=== PATIENT | female | born 1935 | race Caucasian/White ===

== ENCOUNTER 2017-12-30 18:00 | Emergency (ER) | payer MEDICARE, OTHER ==
--- NOTE | 2017-12-30 18:19 | EDM.PDOC ---
ED HPI GENERAL MEDICAL PROBLEM - General Chief Complaint: General Stated Complaint: PAIN IN RIGHT ARM Time Seen by Provider: 12/30/17 18:05 Source of Information: Reports: Patient History Limitations: Reports: No Limitations - History of Present Illness INITIAL COMMENTS - FREE TEXT/NARRATIVE: Andria comes into [facility] ED with a painful R arm that developed just an hour ago. She developed sudden pain in the R upper arm after reaching over a car seat to grab a bag of groceries. Pain seemed to escalate going into the house, associated with a tender enlarging mass of the arm. There is pain with flexion, any attempt at overhead movements, and some perceived weakness. She has taken no meds. She is not on anticoagulants. Right Upper Arm Pain Score (Numeric/FACES): 4 - Related Data Allergies Allergy/AdvReac Type Severity Reaction Status Date / Time No Known Allergies Allergy Verified 12/30/17 18:14 Home Meds: Home Meds . [Unable to Verify Home Med List] 12/30/17 [History] Past Medical History Cardiovascular History: Reports: Hypertension Musculoskeletal History: Reports: Gout - Past Surgical History Musculoskeletal Surgical History: Reports: Hip Replacement Review of Systems - Review of Systems Review Of Systems: ROS reveals no pertinent complaints other than HPI. ED EXAM, GENERAL - Physical Exam Exam: See Below Exam Limited By: No Limitations General Appearance: Alert, WD/WN, Mild Distress Head: Normocephalic Neck: Normal Inspection, Supple, Full Range of Motion Respiratory/Chest: Lungs Clear, Normal Breath Sounds Cardiovascular: Regular Rate, Rhythm, No Murmur GI/Abdominal: Normal Bowel Sounds, Soft, Non-Tender, No Organomegaly, No Distention, No Mass Back Exam: Normal Inspection Extremities: Arm Pain (R arm: firm proximal swelling in proximity to biceps mm; tenderness at bicepital groove; CMS intact), Limited Range of Motion (R arm with guarding) Neurological: Alert, Oriented, CN II-XII Intact, No Motor/Sensory Deficits Psychiatric: Normal Affect, Normal Mood Skin Exam: Warm, Dry, Intact, Normal Color, No Rash Lymphatic: No Adenopathy Course - Vital Signs Text/Narrative:: Seen by Dr Herrera with change of shift, awaiting results of R arm CT. Last Recorded V/S: Last Vital Signs Temp 36.6 C 12/30/17 18:16 Pulse 56 L 12/30/17 18:16 Resp 18 12/30/17 18:16 BP 176/68 H 12/30/17 18:16 Pulse Ox 98 12/30/17 18:16 - Orders/Labs/Meds Orders: Active Orders 24 hr Category Date Time Status Upper Extremity wo Cont Rt [CT] Stat Exams 12/30/17 18:07 Taken Meds: Medications Discontinued Medications Generic Name Dose Route Start Last Admin Trade Name Allie PRN Reason Stop Dose Admin Hydrocodone Bitart/Acetaminophen 1 tab 12/30/17 18:21 12/30/17 18:35 [place] 325-5 Mg PO 12/30/17 18:22 1 tab ONETIME ONE Administration Departure - Departure Time of Disposition: 19:00 Disposition: Home, Self-Care 01 Condition: Fair Clinical Impression: Nontraumatic rupture of right bicep tendon - Discharge Information Instructions: JAIDA for Routine Care of Injuries, [id number] Referrals: Hillary Lopez PARTS ADMINISTRATOR [Primary Care Provider] - Forms: ED Department Discharge Care Plan Goals: see your dr on thursday take pain meds as directed wear sling keep ice to area as diected - Problem List & Annotations (1) Nontraumatic rupture of right bicep tendon SNOMED Code(s): 534048076 Code(s): QLN7336 - Status: Acute Annotation/Comment:: JAIDA Juares, and see Orthopedist later this week. - Problem List Review Problem List Initiated/Reviewed/Updated: Yes - My Orders Last 24 Hours: My Active Orders 12/30/17 18:07 Upper Extremity wo Cont Rt [CT] Stat - Assessment/Plan Last 24 Hours: My Active Orders 12/30/17 18:07 Upper Extremity wo Cont Rt [CT] Stat Plan: Follow up Orthopedics.
[2017-12-30] MEDS ORDERED: Acetaminophen/HYDROcodone 325-5 MG Tab PO ONE (18:21)
--- NOTE | 2017-12-31 08:02 | ER ---
DATE SEEN: 12/30/2017 ADDENDUM: TIME SEEN: 1915 hours. This patient was seen by Dr. Murray. I was called to relay the results of the CT scan. She has complained of pain in the right arm after minimal trauma, and CT scan has revealed that she has a hematoma on the biceps. Pain is well controlled now, after she took hydrocodone. PHYSICAL EXAMINATION: GENERAL: She is not in any cardiopulmonary distress. VITAL SIGNS: Blood pressure 176/68, pulse is 56. EXTREMITIES: Right arm revealed that she is in a sling, has exquisite tenderness to palpation of the proximal arm and a mass that is tender. Peripheral pulses are present at the radius. Range of motion is limited at the shoulder. A CT scan revealed a hematoma, moderate-sized on the biceps area. IMPRESSION: Hematoma, right upper extremity. PLAN: Hydrocodone 1 tablet every 6 hours p.r.n. Continue ice for 20 minutes every 4 hours, sling for 2 to 3 days. Follow up with HORACIO Real, in the office on Thursday. /[id number] ROSARIO/ISABEL
== END 2017-12-30 19:28 | disposition home or self-care (01) ==
LOC: FB.ED 18:00
DX: S40.021A Contusion of right upper arm, initial encounter (principal); X58.XXXA Exposure to other specified factors, initial encounter
CPT/HCPCS: 73200; 99283; A9270

== ENCOUNTER 2018-09-11 16:31 | Observation (INO) | payer MEDICARE, OTHER ==
[2018-09-11] MEDS ORDERED: Aspirin 81 MG Tab.Chew PO ONE (16:56)
[2018-09-11] MEDS ORDERED: Potassium Chloride 10% 20 MEQ/15 ML Soln 15 ML UD Cup PO ONE (18:04)
[2018-09-11] MEDS ORDERED: Ondansetron 4 MG/2 ML SDV IV PRN (18:14)
[2018-09-11] MEDS ORDERED: Sodium Chloride 0.9% 1,000 ML IV SCH (18:15)
[2018-09-11] MEDS ORDERED: Nitroglycerin 2% Oint 1 GM UD Packet TOP ONE (18:18)
[2018-09-11] MEDS ORDERED: Potassium Chloride 20 MEQ Tab.ER PO ONE (18:27)
--- NOTE | 2018-09-11 18:33 | EDM.PDOC ---
ED HPI GENERAL MEDICAL PROBLEM - General Chief Complaint: Chest Pain Stated Complaint: CHEST IS TIGHT Time Seen by Provider: 09/11/18 16:31 Source of Information: Reports: Patient, Family (grandson) History Limitations: Reports: No Limitations - History of Present Illness INITIAL COMMENTS - FREE TEXT/NARRATIVE: 83 y.o.w.f with a H/o a fib > 10 years ago. Pt was at that time electrically cardioverted to sinus rhythm and was doing fine since. Pt was working out side and felt suddenly CP 8/10 at her mid chest, non radiating. No diaphoresis. No radiation of the chest pain. ECG showed A fib with NVR. Pt did not take her meds today. No N/V/D or Dizziness or any other acute medical issues. BP 164/ 74 RR 18 Pulse ox 99% on RA, Temp 36.8 pulse 100 Onset Date: 09/11/18 Onset Time: 13:00 Duration: Minutes:, Constant Location: Reports: Chest Quality: Reports: Pressure, Stabbing Severity: Moderate Improves with: Reports: Rest Worsens with: Reports: None Context: Reports: Activity, Other Associated Symptoms: Reports: Chest Pain chest Pain Score (Numeric/FACES): 5 - Related Data Allergies Allergy/AdvReac Type Severity Reaction Status Date / Time No Known Allergies Allergy Verified 09/11/18 17:26 Home Meds: Home Meds Allopurinol [Zyloprim] 150 mg PO DAILY 09/11/18 [History] Aspirin 81 mg PO BEDTIME 09/11/18 [History] Carbidopa/Levodopa [Sinemet Cr 25-100 Tablet] 1 tab PO BEDTIME 09/11/18 [History ] Furosemide 20 mg PO ASDIRECTED 09/11/18 [History] Lisinopril/Hydrochlorothiazide [Lisinopril-Hctz 20-25 mg Tab] 1 tab PO 1200 08/18 [History] Metoprolol Succinate 100 mg PO 1700 09/11/18 [History] Sertraline [Zoloft] 25 mg PO 1700 09/11/18 [History] Simvastatin [Zocor] 20 mg PO 1700 09/11/18 [History] Past Medical History HEENT History: Reports: Cataract, Impaired Vision Other HEENT History: wears glasses Cardiovascular History: Reports: Hypertension Other Cardiovascular History: CHF 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: Musculoskeletal History: Reports: Gout - Infectious Disease History Infectious Disease History: Reports: Chicken Pox, Measles, Mumps - Past Surgical History Musculoskeletal Surgical History: Reports: Hip Replacement Social & Family History - Family History Family Medical History: Noncontributory - Tobacco Use Smoking Status *Q: Former Smoker Used Tobacco, but Quit: Yes Month/Year Tobacco Last Used: 1989 - Caffeine Use Caffeine Use: Reports: Coffee - Recreational Drug Use Recreational Drug Use: No ED ROS GENERAL - Review of Systems Review Of Systems: See Below Constitutional: Reports: No Symptoms HEENT: Reports: No Symptoms Respiratory: Reports: No Symptoms Cardiovascular: Reports: Chest Pain Endocrine: Reports: No Symptoms GI/Abdominal: Reports: No Symptoms : Reports: No Symptoms Musculoskeletal: Reports: No Symptoms Skin: Reports: No Symptoms Neurological: Reports: No Symptoms Psychiatric: Reports: No Symptoms Hematologic/Lymphatic: Reports: No Symptoms Immunologic: Reports: No Symptoms ED EXAM, GENERAL - Physical Exam Exam: See Below Exam Limited By: No Limitations General Appearance: Alert, WD/WN, Mild Distress Eye Exam: Bilateral Eye: Normal Inspection Ears: Normal External Exam, Normal Canal Ear Exam: Bilateral Ear: Auricle Normal Nose: Normal Inspection, Normal Mucosa, No Blood Throat/Mouth: Normal Inspection, Normal Lips, Normal Voice, No Airway Compromise Head: Atraumatic, Normocephalic Neck: Normal Inspection, Supple, Non-Tender, Full Range of Motion Respiratory/Chest: No Respiratory Distress, Lungs Clear, Normal Breath Sounds, No Accessory Muscle Use, Chest Non-Tender Cardiovascular: Normal Peripheral Pulses, No Edema, No Gallop, No JVD, No Murmur , No Rub, Irregularly Irregular Peripheral Pulses: 2+: Brachial (L) GI/Abdominal: Normal Bowel Sounds, Soft, Non-Tender, No Organomegaly, No Distention, No Abnormal Bruit, No Mass, Pelvis Stable (Female) Exam: Deferred Rectal (Female) Exam: Deferred Back Exam: Normal Inspection, Full Range of Motion Extremities: Normal Inspection, Normal Range of Motion, Non-Tender, No Pedal Edema Neurological: Alert, Oriented, CN II-XII Intact, Normal Cognition, Normal Gait, No Motor/Sensory Deficits Psychiatric: Normal Affect, Normal Mood Skin Exam: Warm, Dry, Intact, Normal Color, No Rash Lymphatic: No Adenopathy EKG INTERPRETATION EKG Date: 09/11/18 Time: 16:45 Rhythm: A-Fib Rate (Beats/Min): 87 Anton: Normal P-Wave: Absent QRS: Normal ST-T: Depressed (V3 to V6) QT: Normal Comparison: NA - No Prior EKG Course - Vital Signs Text/Narrative:: 83 y.o.w.f with a H/o a fib > 10 years ago. Pt was at that time electrically cardioverted to sinus rhythm and was doing fine since. Pt was working out side and felt suddenly CP 8/10 at her mid chest, non radiating. No diaphoresis. No radiation of the chest pain. ECG showed A fib with NVR. Pt did not take her meds today. No N/V/D or Dizziness or any other acute medical issues. BP 164/ 74 RR 18 Pulse ox 99% on RA, Temp 36.8 pulse 100 irr/irr PE: WNWD W F wit SSCP in A fib wit NVR Imaging: CXR NAD Labs: CBC nl BMP: Na 132 K 3.3 BUN 34 Cr. 1.6 GFR 33 Troponin 0.017 Impression: Acute coronary Syndrome with ST depression V3-V6, Low Sodium, low potassium, A fib with NVR Tx: ASA, NTG, NS, Hepain (no bolus), admit, home meds Reexam: Pain improved from 8/10 to 2-3/10 before NTG was placed Plan: Admit to M/S tele. 09/12/2018 23.59 pm Pt converted to NSR, Pt was pain free, Heparin drip was D/C'd. Last Recorded V/S: Last Vital Signs Temp 37.1 C 09/12/18 12:00 Pulse 54 L 09/12/18 12:00 Resp 18 09/12/18 12:00 BP 145/66 H 09/12/18 12:00 Pulse Ox 99 09/12/18 12:00 - Orders/Labs/Meds Labs: Laboratory Tests 09/11/18 09/11/18 09/11/18 Range/Units 17:10 17:10 17:15 WBC 9.8 (4.5-12.0) X10-3/uL RBC 4.08 (3.23-5.20) x10(6)uL Hgb 13.0 (11.5-15.5) g/dL Hct 38.2 (30.0-51.3) % MCV 93.4 (80-96) fL MCH 31.8 (27.7-33.6) pg MCHC 34.0 (32.2-35.4) g/dL RDW 14.3 (11.5-15.5) % Plt Count 222 (125-369) X10(3)uL MPV 8.3 (7.4-10.4) fL Neut % (Auto) 57.1 (46-82) % Lymph % (Auto) 25.9 (13-37) % [place] % (Auto) 11.3 (4-12) % Eos % (Auto) 1 (1.0-5.0) % Baso % (Auto) 5 H (0-2) % Neut # (Auto) 5.6 (1.6-8.3) # Lymph # (Auto) 2.5 (0.6-5.0) # [place] # (Auto) 1.1 (0.0-1.3) # Eos # (Auto) 0.1 (0.0-0.8) # Baso # (Auto) 0.5 H (0.0-0.2) # PT (8.7-11.1) INR (0.89-1.13) APTT 30.4 (24.4-33.2) SECONDS Sodium (135-145) mmol/L Potassium (3.5-5.3) mmol/L Chloride (100-110) mmol/L Carbon Dioxide (21-32) mmol/L BUN (7-18) mg/dL Creatinine (0.55-1.02) mg/dL Est Cr Clr Drug Dosing Estimated GFR (MDRD) (>60) BUN/Creatinine Ratio (9-20) Glucose (80-116) mg/dL Calcium (8.6-10.2) mg/dL Creatine Kinase (60-160) IU/L Troponin I (<0.017-0.056) ng/mL TSH, Ultra Sensitive 3.89 H (0.36-3.74) IU/mL Urine Color (YELLOW) Urine Appearance (CLEAR) Urine pH (5.0-6.5) Ur Specific [place] (1.010-1.025) Urine Protein (NEGATIVE) mg/dL Urine Glucose (UA) (NEGATIVE) mg/dL Urine Ketones (NEGATIVE) mg/dL Urine Occult Blood (NEGATIVE) Urine Nitrite (NEGATIVE) Urine Bilirubin (NEGATIVE) Urine Urobilinogen (NEGATIVE) mg/dL Ur Leukocyte Esterase (NEGATIVE) Urine RBC (0) Urine WBC (0) Ur Squamous Epith Cells (NS,R,O) Urine Bacteria (NS) 09/11/18 09/11/18 09/11/18 Range/Units 17:15 17:15 17:15 WBC (4.5-12.0) X10-3/uL RBC (3.23-5.20) x10(6)uL Hgb (11.5-15.5) g/dL Hct (30.0-51.3) % MCV (80-96) fL MCH (27.7-33.6) pg MCHC (32.2-35.4) g/dL RDW (11.5-15.5) % Plt Count (125-369) X10(3)uL MPV (7.4-10.4) fL Neut % (Auto) (46-82) % Lymph % (Auto) (13-37) % [place] % (Auto) (4-12) % Eos % (Auto) (1.0-5.0) % Baso % (Auto) (0-2) % Neut # (Auto) (1.6-8.3) # Lymph # (Auto) (0.6-5.0) # [place] # (Auto) (0.0-1.3) # Eos # (Auto) (0.0-0.8) # Baso # (Auto) (0.0-0.2) # PT 9.3 (8.7-11.1) INR 0.96 (0.89-1.13) APTT (24.4-33.2) SECONDS Sodium 132 L (135-145) mmol/L Potassium 3.3 L (3.5-5.3) mmol/L Chloride 94 L (100-110) mmol/L Carbon Dioxide 29 (21-32) mmol/L BUN 34 H (7-18) mg/dL Creatinine 1.3 H (0.55-1.02) mg/dL Est Cr Clr Drug Dosing TNP Estimated GFR (MDRD) 39 L (>60) BUN/Creatinine Ratio 26.2 H (9-20) Glucose 102 (80-116) mg/dL Calcium 9.3 (8.6-10.2) mg/dL Creatine Kinase 105 (60-160) IU/L Troponin I < 0.017 L (<0.017-0.056) ng/mL TSH, Ultra Sensitive (0.36-3.74) IU/mL Urine Color (YELLOW) Urine Appearance (CLEAR) Urine pH (5.0-6.5) Ur Specific [place] (1.010-1.025) Urine Protein (NEGATIVE) mg/dL Urine Glucose (UA) (NEGATIVE) mg/dL Urine Ketones (NEGATIVE) mg/dL Urine Occult Blood (NEGATIVE) Urine Nitrite (NEGATIVE) Urine Bilirubin (NEGATIVE) Urine Urobilinogen (NEGATIVE) mg/dL Ur Leukocyte Esterase (NEGATIVE) Urine RBC (0) Urine WBC (0) Ur Squamous Epith Cells (NS,R,O) Urine Bacteria (NS) 09/11/18 Range/Units 17:29 WBC (4.5-12.0) X10-3/uL RBC (3.23-5.20) x10(6)uL Hgb (11.5-15.5) g/dL Hct (30.0-51.3) % MCV (80-96) fL MCH (27.7-33.6) pg MCHC (32.2-35.4) g/dL RDW (11.5-15.5) % Plt Count (125-369) X10(3)uL MPV (7.4-10.4) fL Neut % (Auto) (46-82) % Lymph % (Auto) (13-37) % [place] % (Auto) (4-12) % Eos % (Auto) (1.0-5.0) % Baso % (Auto) (0-2) % Neut # (Auto) (1.6-8.3) # Lymph # (Auto) (0.6-5.0) # [place] # (Auto) (0.0-1.3) # Eos # (Auto) (0.0-0.8) # Baso # (Auto) (0.0-0.2) # PT (8.7-11.1) INR (0.89-1.13) APTT (24.4-33.2) SECONDS Sodium (135-145) mmol/L Potassium (3.5-5.3) mmol/L Chloride (100-110) mmol/L Carbon Dioxide (21-32) mmol/L BUN (7-18) mg/dL Creatinine (0.55-1.02) mg/dL Est Cr Clr Drug Dosing Estimated GFR (MDRD) (>60) BUN/Creatinine Ratio (9-20) Glucose (80-116) mg/dL Calcium (8.6-10.2) mg/dL Creatine Kinase (60-160) IU/L Troponin I (<0.017-0.056) ng/mL TSH, Ultra Sensitive (0.36-3.74) IU/mL Urine Color Yellow (YELLOW) Urine Appearance Clear (CLEAR) Urine pH 8.0 H (5.0-6.5) Ur Specific [place] 1.005 L (1.010-1.025) Urine Protein Negative (NEGATIVE) mg/dL Urine Glucose (UA) Normal (NEGATIVE) mg/dL Urine Ketones Negative (NEGATIVE) mg/dL Urine Occult Blood Negative (NEGATIVE) Urine Nitrite Negative (NEGATIVE) Urine Bilirubin Negative (NEGATIVE) Urine Urobilinogen Normal (NEGATIVE) mg/dL Ur Leukocyte Esterase Negative (NEGATIVE) Urine RBC 0-5 (0) Urine WBC 0-5 (0) Ur Squamous Epith Cells Occasional (NS,R,O) Urine Bacteria Rare H (NS) Meds: Medications Discontinued Medications Generic Name Dose Route Start Last Admin Trade Name Freq PRN Reason Stop Dose Admin Allopurinol 150 mg 09/12/18 09:00 09/12/18 09:08 Zyloprim PO 150 mg DAILY [facility] Administration Amlodipine Besylate 5 mg 09/11/18 21:14 Norvasc PO ASDIRECTED PRN Hypertension Amlodipine Besylate 5 mg 09/12/18 09:00 09/12/18 09:08 Norvasc PO 5 mg DAILY [facility] Administration Aspirin 324 mg 09/11/18 16:56 09/11/18 16:59 Aspirin PO 09/11/18 16:57 324 mg ONETIME ONE Administration Aspirin 81 mg 09/12/18 09:45 09/12/18 10:01 Halfprin PO 81 mg DAILY [facility] Administration Carbidopa/Levodopa 1 tab 09/12/18 21:00 Sinemet 25-100 Mg PO BEDTIME [facility]U Carbidopa/Levodopa 1 tab 09/11/18 21:24 09/11/18 22:20 Sinemet 25-100 Mg PO 09/11/18 21:25 Not Given ONETIME ONE Carbidopa/Levodopa 1 tab 09/11/18 21:47 09/11/18 22:20 Sinemet Cr 25-100 Mg PO 1 tab BEDTIME [facility] Administration Lisinopril/HCTZ 1 tab 09/12/18 12:00 09/12/18 12:16 Lisinopril-Hctz 20-25 Mg PO Not Given DAILY@1200 [facility] Sodium Chloride 1,000 mls @ 125 mls/hr 09/11/18 18:15 09/11/18 18:40 Normal Saline IV 125 mls/hr ASDIRECTED [facility] Administration Heparin Sodium/Sodium Chloride 25,000 units in 500 mls @ 15.816 mls/hr 18:45 09/11/18 19:40 Heparin 25,000 Units In 1/2 Ns 500 Ml IV 12 units/kg/hr TITRATE [facility] 15.816 mls/hr Administration Protocol 12 UNITS/KG/HR Metoprolol Succinate 100 mg 09/12/18 17:00 Toprol Xl PO 1700 [facility] Metoprolol Succinate 100 mg 09/11/18 21:20 09/11/18 22:13 Toprol Xl PO 09/11/18 21:21 100 mg ONETIME ONE Administration Metoprolol Succinate 100 mg 09/12/18 17:00 Toprol Xl PO DAILY@1700 [facility] Nitroglycerin 1 gm 09/11/18 18:18 09/11/18 18:45 Nitro-Bid 2% TOP 09/11/18 18:19 1 gm ONETIME ONE Administration Non-Formulary Medication 1 tab 09/12/18 12:00 Lisinopril/Hydrochlorothiazide [Lisinopril-Hctz 20-25 Mg Tab] PO 1200 [facility] Ondansetron HCl 4 mg 09/11/18 18:14 Zofran IV Q4H PRN Nausea/Vomiting Pantoprazole Sodium 40 mg 09/11/18 18:15 09/12/18 06:08 Protonix Iv IVPUSH 40 mg Q12H [facility] Administration Potassium Chloride 20 meq 09/11/18 18:04 09/11/18 19:36 Potassium Chloride Solution PO 09/11/18 18:05 Not Given ONETIME ONE Potassium Chloride 20 meq 09/11/18 18:27 09/11/18 18:45 Klor-Con M20 PO 09/11/18 18:28 20 meq ONETIME ONE Administration Potassium Chloride 40 meq 09/12/18 00:47 09/12/18 01:04 Klor-Con M20 PO 09/12/18 00:48 40 meq ONETIME ONE Administration Sertraline HCl 25 mg 09/12/18 17:00 Zoloft PO 1700 [facility] Sertraline HCl 25 mg 09/11/18 21:22 09/11/18 22:14 Zoloft PO 09/11/18 21:23 25 mg ONETIME ONE Administration Sertraline HCl 25 mg 09/12/18 17:00 Zoloft PO DAILY@1700 [facility] Simvastatin 20 mg 09/12/18 17:00 Zocor PO 1700 [facility] Simvastatin 20 mg 09/11/18 21:23 09/11/18 22:14 Zocor PO 09/11/18 21:24 20 mg ONETIME ONE Administration Simvastatin 20 mg 09/12/18 17:00 Zocor PO DAILY@1700 [facility] Sodium Chloride 10 ml 09/12/18 00:56 09/12/18 07:33 Saline Flush FLUSH 10 ml ASDIRECTED PRN Administration flush for saline lock Departure - Departure Time of Disposition: 17:00 Disposition: Admitted As Inpatient 65 Reason for Transfer *Q: Other (Acute coronary syndrome) Condition: Fair Clinical Impression: ACS (acute coronary syndrome)
[2018-09-11] MEDS: Pantoprazole 40 MG Vial IVPUSH SCH (18:45)
[2018-09-11] MEDS ORDERED: Heparin Sodium/0.45% NaCl 25,000 UNITS/500 ML BAG IV SCH (18:45)
[2018-09-11] MEDS ORDERED: amLODIPine 5 MG Tab PO PRN (21:14)
[2018-09-11] MEDS ORDERED: Metoprolol Succinate 100 MG Tab.ER**OWN MED PO ONE (21:20)
[2018-09-11] MEDS ORDERED: Sertraline 25 MG Tab**OWN MED PO ONE (21:22)
[2018-09-11] MEDS ORDERED: Simvastatin 20 MG Tab**OWN MED PO ONE (21:23)
[2018-09-11] MEDS ORDERED: Carbidopa/Levodopa 25-100 MG Tab PO ONE (21:24)
[2018-09-11] MEDS ORDERED: LEVODOPA PO SCH (21:47)
[2018-09-11] MEDS ORDERED: CARBIDOPA PO SCH (21:47)
[2018-09-12] MEDS ORDERED: Potassium Chloride 20 MEQ Tab.ER PO ONE (00:47)
[2018-09-12] MEDS: Sodium Chloride 0.9% 10 ML Syringe FLUSH PRN ×3 (01:04→07:33)
[2018-09-12] MEDS: Pantoprazole 40 MG Vial IVPUSH SCH (06:08)
[2018-09-12] MEDS ORDERED: Allopurinol 100 MG Tab**OWN MED PO SCH (09:00)
[2018-09-12] MEDS ORDERED: amLODIPine 5 MG Tab PO SCH (09:00)
--- NOTE | 2018-09-12 09:14 | PCM.HP ---
H&P History of Present Illness - General Date of Service: 09/12/18 Admit Problem/Dx: Admission Diagnosis/Problem Admission Diagnosis/Problem Atrial fibrillation with normal ventricular rate Source of Information: Patient, Old Records, Provider History Limitations: Reports: No Limitations - History of Present Illness Initial Comments - Free Text/Narative: Patient is an 83-year-old female with a very remote history of atrial fibrillation status post cardioversion with no further episodes in at least 10 years and congestive heart failure who had the acute onset of chest pain/ pressure and jaw pressure that developed while she was vacuuming on the day of admission at about 1515. She sat down and rested, then took her blood pressure which was in the 160s systolic. She checked her pulse and it was 94 but then she felt her pulse and it was very irregular. She had no dizziness, no nausea or vomiting, no sweatiness, no shortness of breath. However the tightness in her throat and chest persisted and so she decided to present to the emergency department. On arrival to the emergency department vital signs were stable and she was found to have a HR in the 80s on EKG with atrial fibrillation. Initial EKG showed atrial fibrillation with a controlled rate, left axis deviation, [address] segment depression in V3 through V6 with an occasional PVC and no T-wave inversion. Initial troponin was negative. The patient was given Nitropaste and started on a heparin drip and admitted to the ICU for further evaluation and treatment. EKG was subsequently repeated at 2359 when the patient spontaneously cardioverted and at that time the patient had ST depression in lead 2 with inversion/flattening of the T wave in 3 and aVF, ST depression was slightly persistent in V4 through V6. EKG done this morning shows more prominent T-wave inversion in 3 and aVF with resolution of ST depression for the most part in the lateral leads. When compared to previous EKG 05/06/17, inversion of T-wave in 3 and aVF appears to be new. Of note after the patient cardioverted her heparin drip was stopped so she is currently not anticoagulated. The patient has been asymptomatic since she had resolution of her atrial fibrillation and her troponins have been negative 3. At this time the patient is resting comfortably in no distress. She has no shortness of breath, no chest tightness, no nausea or vomiting, no abdominal pain. She feels back to her baseline. She's not had other episodes like this in the past. Past medical history: Hypertension History of atrial fibrillation and normal past with electrical cardioversion and minimal further episodes. Patient is not on anticoagulation and in chart review it appears she had not been on more than aspirin since 2012. Congestive heart failure. Last echo 08/25/12 showed systolic function normal with an ejection fraction of 65%, mild diastolic dysfunction. Hyperlipidemia History of depression History of iron deficiency anemia due to chronic blood loss History of skin cancer 2 Restless leg syndrome Stage III chronic kidney disease followed by nephrology Social history: The patient is and lives in [place], [place] on a farm. Her daughter stays with her 3 nights a week as she works between [employer]. She quit smoking about 15 years ago and drinks about once a month. When she drinks she typically drinks a number of drinks, sometimes as many as 6, over the course of the day. Family history: The patient's mother of congestive heart failure, the patient's father of cancer. She has 3 children and one of her sons had esophageal cancer. chest Pain Score (Numeric/FACES): 5 - Related Data Allergies/Adverse Reactions: Allergies Allergy/AdvReac Type Severity Reaction Status Date / Time No Known Allergies Allergy Verified 09/11/18 17:26 Home Medications: Home Meds Allopurinol [Zyloprim] 150 mg PO DAILY 09/11/18 [History] Aspirin 81 mg PO BEDTIME 09/11/18 [History] Carbidopa/Levodopa [Sinemet Cr 25-100 Tablet] 1 tab PO BEDTIME 09/11/18 [History ] Furosemide 20 mg PO ASDIRECTED 09/11/18 [History] Lisinopril/Hydrochlorothiazide [Lisinopril-Hctz 20-25 mg Tab] 1 tab PO 1200 08/18 [History] Metoprolol Succinate 100 mg PO 1700 09/11/18 [History] Sertraline [Zoloft] 25 mg PO 1700 09/11/18 [History] Simvastatin [Zocor] 20 mg PO 1700 09/11/18 [History] Past Medical History HEENT History: Reports: Cataract, Impaired Vision Other HEENT History: wears glasses Cardiovascular History: Reports: Hypertension Other Cardiovascular History: CHF Genitourinary History: Reports: Renal Disease, UTI, Recurrent LICENSED AUDIOLOGIST History: Reports: Other OB/BYN History: had a tubal and had a the appy then as well Musculoskeletal History: Reports: Gout Other Neuro History: restless leg syndrome Oncologic (Cancer) History: Reports: Squamous Cell Carcinoma Other Oncologic History: arms, behind knee, foot Other Dermatologic History: squamous cell carcinoma - Infectious Disease History Infectious Disease History: Reports: Chicken Pox, Measles, Mumps - Past Surgical History Musculoskeletal Surgical History: Reports: Hip Replacement Social & Family History - Family History Family Medical History: Noncontributory - Tobacco Use Smoking Status *Q: Former Smoker Packs/Tins Daily: 0 Used Tobacco, but Quit: Yes Month/Year Tobacco Last Used: 1989 Second Hand Smoke Exposure: No - Caffeine Use Caffeine Use: Reports: Coffee - Alcohol Use Number of Drinks Per Day: 0 - Recreational Drug Use Recreational Drug Use: No H&P Review of Systems - Review of Systems: Review Of Systems: ROS reveals no pertinent complaints other than HPI. Exam - Exam Exam: See Below - Vital Signs Vital Signs: Last Vital Signs Temp 36.4 C 09/12/18 07:31 Pulse 55 L 09/12/18 07:31 Resp 16 09/12/18 07:31 BP 153/60 H 09/12/18 07:31 Pulse Ox 99 09/12/18 07:31 Weight: 66.763 kg - Exam General: Alert, Oriented, Cooperative HEENT: PERRLA, Conjunctiva Clear, EOMI Neck: Supple Lungs: Clear to Auscultation, Normal Respiratory Effort Cardiovascular: Regular Rate, Regular Rhythm, Normal S1, Normal S2 GI/Abdominal Exam: Normal Bowel Sounds, Soft, Non-Tender, No Distention Back Exam: Normal Inspection, Full Range of Motion Extremities: No Pedal Edema Neuro Extensive - Mental Status: Alert, Oriented x3, Normal Mood/Affect - Patient Data Lab Results Last 24 hrs: Laboratory Results - last 24 hr 09/11/18 09/11/18 09/11/18 Range/Units 17:10 17:10 17:15 WBC 9.8 (4.5-12.0) X10-3/uL RBC 4.08 (3.23-5.20) x10(6)uL Hgb 13.0 (11.5-15.5) g/dL Hct 38.2 (30.0-51.3) % MCV 93.4 (80-96) fL MCH 31.8 (27.7-33.6) pg MCHC 34.0 (32.2-35.4) g/dL RDW 14.3 (11.5-15.5) % Plt Count 222 (125-369) X10(3)uL MPV 8.3 (7.4-10.4) fL Neut % (Auto) 57.1 (46-82) % Lymph % (Auto) 25.9 (13-37) % [place] % (Auto) 11.3 (4-12) % Eos % (Auto) 1 (1.0-5.0) % Baso % (Auto) 5 H (0-2) % Neut # (Auto) 5.6 (1.6-8.3) # Lymph # (Auto) 2.5 (0.6-5.0) # [place] # (Auto) 1.1 (0.0-1.3) # Eos # (Auto) 0.1 (0.0-0.8) # Baso # (Auto) 0.5 H (0.0-0.2) # PT (8.7-11.1) INR (0.89-1.13) APTT 30.4 (24.4-33.2) SECONDS Sodium (135-145) mmol/L Potassium (3.5-5.3) mmol/L Chloride (100-110) mmol/L Carbon Dioxide (21-32) mmol/L BUN (7-18) mg/dL Creatinine (0.55-1.02) mg/dL Est Cr Clr Drug Dosing Estimated GFR (MDRD) (>60) BUN/Creatinine Ratio (9-20) Glucose (80-116) mg/dL Calcium (8.6-10.2) mg/dL Creatine Kinase (60-160) IU/L Troponin I (<0.017-0.056) ng/mL TSH, Ultra Sensitive 3.89 H (0.36-3.74) IU/mL Urine Color (YELLOW) Urine Appearance (CLEAR) Urine pH (5.0-6.5) Ur Specific [place] (1.010-1.025) Urine Protein (NEGATIVE) mg/dL Urine Glucose (UA) (NEGATIVE) mg/dL Urine Ketones (NEGATIVE) mg/dL Urine Occult Blood (NEGATIVE) Urine Nitrite (NEGATIVE) Urine Bilirubin (NEGATIVE) Urine Urobilinogen (NEGATIVE) mg/dL Ur Leukocyte Esterase (NEGATIVE) Urine RBC (0) Urine WBC (0) Ur Squamous Epith Cells (NS,R,O) Urine Bacteria (NS) 09/11/18 09/11/18 09/11/18 Range/Units 17:15 17:15 17:15 WBC (4.5-12.0) X10-3/uL RBC (3.23-5.20) x10(6)uL Hgb (11.5-15.5) g/dL Hct (30.0-51.3) % MCV (80-96) fL MCH (27.7-33.6) pg MCHC (32.2-35.4) g/dL RDW (11.5-15.5) % Plt Count (125-369) X10(3)uL MPV (7.4-10.4) fL Neut % (Auto) (46-82) % Lymph % (Auto) (13-37) % [place] % (Auto) (4-12) % Eos % (Auto) (1.0-5.0) % Baso % (Auto) (0-2) % Neut # (Auto) (1.6-8.3) # Lymph # (Auto) (0.6-5.0) # [place] # (Auto) (0.0-1.3) # Eos # (Auto) (0.0-0.8) # Baso # (Auto) (0.0-0.2) # PT 9.3 (8.7-11.1) INR 0.96 (0.89-1.13) APTT (24.4-33.2) SECONDS Sodium 132 L (135-145) mmol/L Potassium 3.3 L (3.5-5.3) mmol/L Chloride 94 L (100-110) mmol/L Carbon Dioxide 29 (21-32) mmol/L BUN 34 H (7-18) mg/dL Creatinine 1.3 H (0.55-1.02) mg/dL Est Cr Clr Drug Dosing TNP Estimated GFR (MDRD) 39 L (>60) BUN/Creatinine Ratio 26.2 H (9-20) Glucose 102 (80-116) mg/dL Calcium 9.3 (8.6-10.2) mg/dL Creatine Kinase 105 (60-160) IU/L Troponin I < 0.017 L (<0.017-0.056) ng/mL TSH, Ultra Sensitive (0.36-3.74) IU/mL Urine Color (YELLOW) Urine Appearance (CLEAR) Urine pH (5.0-6.5) Ur Specific [place] (1.010-1.025) Urine Protein (NEGATIVE) mg/dL Urine Glucose (UA) (NEGATIVE) mg/dL Urine Ketones (NEGATIVE) mg/dL Urine Occult Blood (NEGATIVE) Urine Nitrite (NEGATIVE) Urine Bilirubin (NEGATIVE) Urine Urobilinogen (NEGATIVE) mg/dL Ur Leukocyte Esterase (NEGATIVE) Urine RBC (0) Urine WBC (0) Ur Squamous Epith Cells (NS,R,O) Urine Bacteria (NS) 09/11/18 09/11/18 09/11/18 Range/Units 17:29 23:55 23:55 WBC (4.5-12.0) X10-3/uL RBC (3.23-5.20) x10(6)uL Hgb (11.5-15.5) g/dL Hct (30.0-51.3) % MCV (80-96) fL MCH (27.7-33.6) pg MCHC (32.2-35.4) g/dL RDW (11.5-15.5) % Plt Count (125-369) X10(3)uL MPV (7.4-10.4) fL Neut % (Auto) (46-82) % Lymph % (Auto) (13-37) % [place] % (Auto) (4-12) % Eos % (Auto) (1.0-5.0) % Baso % (Auto) (0-2) % Neut # (Auto) (1.6-8.3) # Lymph # (Auto) (0.6-5.0) # [place] # (Auto) (0.0-1.3) # Eos # (Auto) (0.0-0.8) # Baso # (Auto) (0.0-0.2) # PT (8.7-11.1) INR (0.89-1.13) APTT (24.4-33.2) SECONDS Sodium (135-145) mmol/L Potassium 3.1 L (3.5-5.3) mmol/L Chloride (100-110) mmol/L Carbon Dioxide (21-32) mmol/L BUN (7-18) mg/dL Creatinine (0.55-1.02) mg/dL Est Cr Clr Drug Dosing Estimated GFR (MDRD) (>60) BUN/Creatinine Ratio (9-20) Glucose (80-116) mg/dL Calcium (8.6-10.2) mg/dL Creatine Kinase (60-160) IU/L Troponin I < 0.017 L (<0.017-0.056) ng/mL TSH, Ultra Sensitive (0.36-3.74) IU/mL Urine Color Yellow (YELLOW) Urine Appearance Clear (CLEAR) Urine pH 8.0 H (5.0-6.5) Ur Specific [place] 1.005 L (1.010-1.025) Urine Protein Negative (NEGATIVE) mg/dL Urine Glucose (UA) Normal (NEGATIVE) mg/dL Urine Ketones Negative (NEGATIVE) mg/dL Urine Occult Blood Negative (NEGATIVE) Urine Nitrite Negative (NEGATIVE) Urine Bilirubin Negative (NEGATIVE) Urine Urobilinogen Normal (NEGATIVE) mg/dL Ur Leukocyte Esterase Negative (NEGATIVE) Urine RBC 0-5 (0) Urine WBC 0-5 (0) Ur Squamous Epith Cells Occasional (NS,R,O) Urine Bacteria Rare H (NS) 09/11/18 09/12/18 09/12/18 Range/Units 23:55 06:15 06:15 WBC (4.5-12.0) X10-3/uL RBC (3.23-5.20) x10(6)uL Hgb (11.5-15.5) g/dL Hct (30.0-51.3) % MCV (80-96) fL MCH (27.7-33.6) pg MCHC (32.2-35.4) g/dL RDW (11.5-15.5) % Plt Count (125-369) X10(3)uL MPV (7.4-10.4) fL Neut % (Auto) (46-82) % Lymph % (Auto) (13-37) % [place] % (Auto) (4-12) % Eos % (Auto) (1.0-5.0) % Baso % (Auto) (0-2) % Neut # (Auto) (1.6-8.3) # Lymph # (Auto) (0.6-5.0) # [place] # (Auto) (0.0-1.3) # Eos # (Auto) (0.0-0.8) # Baso # (Auto) (0.0-0.2) # PT (8.7-11.1) INR (0.89-1.13) APTT 58.5 H (24.4-33.2) SECONDS Sodium (135-145) mmol/L Potassium 3.9 (3.5-5.3) mmol/L Chloride (100-110) mmol/L Carbon Dioxide (21-32) mmol/L BUN (7-18) mg/dL Creatinine (0.55-1.02) mg/dL Est Cr Clr Drug Dosing Estimated GFR (MDRD) (>60) BUN/Creatinine Ratio (9-20) Glucose (80-116) mg/dL Calcium (8.6-10.2) mg/dL Creatine Kinase (60-160) IU/L Troponin I < 0.017 L (<0.017-0.056) ng/mL TSH, Ultra Sensitive (0.36-3.74) IU/mL Urine Color (YELLOW) Urine Appearance (CLEAR) Urine pH (5.0-6.5) Ur Specific [place] (1.010-1.025) Urine Protein (NEGATIVE) mg/dL Urine Glucose (UA) (NEGATIVE) mg/dL Urine Ketones (NEGATIVE) mg/dL Urine Occult Blood (NEGATIVE) Urine Nitrite (NEGATIVE) Urine Bilirubin (NEGATIVE) Urine Urobilinogen (NEGATIVE) mg/dL Ur Leukocyte Esterase (NEGATIVE) Urine RBC (0) Urine WBC (0) Ur Squamous Epith Cells (NS,R,O) Urine Bacteria (NS) Result Diagrams: 09/11/18 17:15 09/12/18 06:15 - Problem List (1) Chest pressure SNOMED Code(s): 907140253 ICD Code: R07.89 - OTHER CHEST PAIN Status: Acute Current Visit: Yes Problem Details: Although likely related to the patient's atrial fibrillation and her troponins ruled out, I'm concerned about persistent inferior lead EKG changes which were not present in 2017. As well, the patient had ST depression in the lateral leads with a controlled atrial fibrillation rate. I think this warrants further evaluation prior to discharge home. I've recommended to the patient that she be stressed in [place]. Contacted [facility] and Dr. [place] Hospitalist accepted the patient at [phone]. (2) Atrial fibrillation with controlled ventricular rate SNOMED Code(s): 87634061 ICD Code: I48.91 - UNSPECIFIED ATRIAL FIBRILLATION Status: Acute Current Visit: Yes Problem Details: Resolved. Patient had not missed a dose of her beta melba. (3) HTN (hypertension) SNOMED Code(s): 77039050 ICD Code: I10 - ESSENTIAL (PRIMARY) HYPERTENSION Status: Acute Current Visit: Yes Problem Details: Stable, monitor. Continue home meds. (4) CKD (chronic kidney disease) stage 3, GFR 30-59 ml/min SNOMED Code(s): 936096669 ICD Code: N18.3 - CHRONIC KIDNEY DISEASE, STAGE 3 (MODERATE) Status: Acute Current Visit: Yes Problem Details: Monitor, avoid renal toxic medication. Problem List Initiated/Reviewed/Updated: Yes Orders Last 24hrs: Active Orders 24 hr Category Date Time Status Patient Status [ADT] Routine ADT 09/11/18 18:14 Active Cardiac Monitoring [RC] 08,16,00 Care 09/11/18 18:16 Active EKG Documentation Completion [RC] ASDIRECTED Care 09/11/18 18:26 Active Oxygen Therapy [RC] PRN Care 09/11/18 18:14 Active Pulse Oximetry [RC] PRN Care 09/11/18 18:16 Active Up With Assistance [RC] ASDIRECTED Care 09/11/18 18:14 Active Vital Signs [RC] 08,12,16,20,00,04 Care 09/11/18 18:14 Active Chest 1V Frontal [CR] Stat Exams 09/11/18 16:56 Taken Allopurinol [Zyloprim] Med 09/12/18 09:00 Active 150 mg PO DAILY Carbidopa/Levodopa [Sinemet Cr 25-100 mg] Med 09/11/18 21:47 Active 1 tab PO BEDTIME Hydrochlorothiazide/Lisinopril [Lisinopril-HCTZ 20-25 Med 09/12/18 12:00 Active MG] 1 tab PO DAILY@1200 Metoprolol Succinate [Toprol XL] Med 09/12/18 17:00 Active 100 mg PO DAILY@1700 Ondansetron [Zofran] Med 09/11/18 18:14 Active 4 mg IV Q4H PRN Pantoprazole [ProTONIX IV] Med 09/11/18 18:15 Active 40 mg IVPUSH Q12H Sertraline [Zoloft] Med 09/12/18 17:00 Active 25 mg PO DAILY@1700 Simvastatin [Zocor] Med 09/12/18 17:00 Active 20 mg PO DAILY@1700 Sodium Chloride 0.9% [Saline Flush] Med 09/12/18 00:56 Active 10 ml FLUSH ASDIRECTED PRN amLODIPine [Norvasc] Med 09/12/18 09:00 Active 5 mg PO DAILY Resuscitation Status Routine Resus Stat 09/11/18 18:14 Ordered EKG 12 Lead [EK] Routine Ther 09/11/18 16:45 Ordered EKG 12 Lead [EK] Routine Ther 09/11/18 23:55 Ordered EKG 12 Lead [EK] Routine Ther 09/12/18 06:00 Ordered Medication Orders Allopurinol (Zyloprim) 150 mg PO DAILY [facility] Amlodipine Besylate (Norvasc) 5 mg PO DAILY [facility] Carbidopa/Levodopa (Sinemet Cr 25-100 Mg) 1 tab PO BEDTIME [facility] Last Admin: 09/11/18 22:20 Dose: 1 tab Lisinopril/HCTZ (Lisinopril-Hctz 20-25 Mg) 1 tab PO DAILY@1200 [facility] Metoprolol Succinate (Toprol Xl) 100 mg PO DAILY@1700 [facility] Ondansetron HCl (Zofran) 4 mg IV Q4H PRN PRN Reason: Nausea/Vomiting Pantoprazole Sodium (Protonix Iv) 40 mg IVPUSH Q12H [facility] Last Admin: 09/12/18 06:08 Dose: 40 mg Admin: 09/11/18 18:45 Dose: 40 mg Sertraline HCl (Zoloft) 25 mg PO DAILY@1700 [facility] Simvastatin (Zocor) 20 mg PO DAILY@1700 [facility] Sodium Chloride (Saline Flush) 10 ml FLUSH ASDIRECTED PRN PRN Reason: flush for saline lock Last Admin: 09/12/18 07:33 Dose: 10 ml Admin: 09/12/18 06:16 Dose: 10 ml Admin: 09/12/18 01:04 Dose: 10 ml Assessment/Plan Comment:: CODE STATUS reviewed with the patient. She is currently noted as a full code and does feel that if she were to have her heart stop beating at this moment she would want us to "give a shock" and see if we can get it started again. However she has a nephew who was successfully resuscitated and has significant anoxic brain injury and she does not want that to happen to her. She feels perhaps it would be better to be DNR so that she would never end up in that situation. She would like to visit more with her family about this and although she is confident she wouldn't want prolonged resuscitation, is still not sure if she would even want an initial resuscitation. Discussed with the patient that for the time being she'll be full code but she can let us know if she would change her mind at any time.
[2018-09-12] MEDS ORDERED: Aspirin 81 MG Tab.EC PO SCH (09:45)
--- NOTE | 2018-09-12 10:02 | PCM.DCSUM1 ---
Discharge Summary - Hospital Course Free Text/Narrative:: Date of admission: 09/11/18 Date of transfer: 09/12/18 Admission diagnosis: Acute coronary syndrome Discharge diagnosis: Chest pressure, now resolved, with episode of atrial fibrillation, now with new EKG changes. Recommend stress testing prior to discharge. Patient will be transferred to [facility] for this testing. Dr. Morataya accepted the patient in transfer at 0951. Consults: None Procedures: None HPI: Patient is an 83-year-old female who was vacuuming on the day of admission at 1515 when she developed the sudden onset of chest pressure radiating up into the jaw. She stopped and rested but it didn't go away. Checked her vital signs and they were normal but her heart rate was irregular. The pain did not resolve so she presented to the emergency department where she was found to be in atrial fibrillation with controlled rate (had hx of paroxysmal A fib) and EKG showed ST segment depression of 1 mm in the lateral leads. Patient was admitted for rule out AMI and symptom management. Nitropaste resolved her symptoms. She was initially heparinized but after second troponin came back negative and she spontaneously cardioverted the heparin was stopped. Although troponins were negative 3, in a.m. EKG showed new T-wave inversion in III and aVF and given the patient's risk factors and classic symptoms, the decision was made to transfer for stress testing prior to discharge. Please see admission H&P same date for further details as to history and physical exam on the day of admission/discharge. - Discharge Data Discharge Date: 09/12/18 Discharge Disposition: DC/Tfer to Acute Hospital 02 Condition: Good - Discharge Diagnosis/Problem(s) (1) Chest pressure SNOMED Code(s): 705412198 ICD Code: R07.89 - OTHER CHEST PAIN Status: Acute Current Visit: Yes Problem Details: Although likely related to the patient's atrial fibrillation and her troponins ruled out, I'm concerned about persistent inferior lead EKG changes which were not present in 2017. As well, the patient had ST depression in the lateral leads with a controlled atrial fibrillation rate. I think this warrants further evaluation prior to discharge home. I've recommended to the patient that she be stressed in [place]. Contacted [place] and Dr. Morataya Hospitalist accepted the patient at [phone]. (2) Atrial fibrillation with controlled ventricular rate SNOMED Code(s): 57169161 ICD Code: I48.91 - UNSPECIFIED ATRIAL FIBRILLATION Status: Acute Current Visit: Yes Problem Details: Resolved. Patient had not missed a dose of her beta melba. (3) HTN (hypertension) SNOMED Code(s): 54014187 ICD Code: I10 - ESSENTIAL (PRIMARY) HYPERTENSION Status: Acute Current Visit: Yes Problem Details: Stable, monitor. Continue home meds. (4) CKD (chronic kidney disease) stage 3, GFR 30-59 ml/min SNOMED Code(s): 414693322 ICD Code: N18.3 - CHRONIC KIDNEY DISEASE, STAGE 3 (MODERATE) Status: Acute Current Visit: Yes Problem Details: Monitor, avoid renal toxic medication. - Patient Instructions Other/Special Instructions: You were admitted to the hospital due to chest pressure and we were concerned you might be having a heart attack. You didn't have evidence of a heart attack on your blood work, but your EKG showed changes concerning for low blood flow to part of your heart. I recommended you have a stress test before you go home to rule out blockage. You have atrial fibrillation and because of an increased risk of stroke you may want to reconsider blood thinner. Please discuss this with your primary care provider when you return to the clinic after your trip to [place]. - Discharge Plan Home Medications: Home Meds Allopurinol [Zyloprim] 150 mg PO DAILY 09/11/18 [History] Aspirin 81 mg PO BEDTIME 09/11/18 [History] Carbidopa/Levodopa [Sinemet Cr 25-100 Tablet] 1 tab PO BEDTIME 09/11/18 [History ] Furosemide 20 mg PO ASDIRECTED 09/11/18 [History] Lisinopril/Hydrochlorothiazide [Lisinopril-Hctz 20-25 mg Tab] 1 tab PO 1200 08/18 [History] Metoprolol Succinate 100 mg PO 1700 09/11/18 [History] Sertraline [Zoloft] 25 mg PO 1700 09/11/18 [History] Simvastatin [Zocor] 20 mg PO 1700 09/11/18 [History] Forms: ED Department Discharge Referrals: Hillary Lopez NP [Primary Care Provider] - - Discharge Summary/Plan Comment DC Time >30 min.: Yes - General Info Date of Service: 09/12/18 - Patient Data Vitals - Most Recent: Last Vital Signs Temp 36.4 C 09/12/18 07:31 Pulse 55 L 09/12/18 07:31 Resp 16 09/12/18 07:31 BP 153/60 H 09/12/18 09:08 Pulse Ox 99 09/12/18 07:31 Weight - Most Recent: 66.763 kg I&O - Last 24 hours: Intake & Output 09/11/18 09/12/18 09/12/18 22:59 06:59 14:59 Intake Total 795 335 Output Total 500 725 Balance 295 -390 Lab Results - Last 24 hrs: Laboratory Results - last 24 hr 09/11/18 09/11/18 09/11/18 Range/Units 17:10 17:10 17:15 WBC 9.8 (4.5-12.0) X10-3/uL RBC 4.08 (3.23-5.20) x10(6)uL Hgb 13.0 (11.5-15.5) g/dL Hct 38.2 (30.0-51.3) % MCV 93.4 (80-96) fL MCH 31.8 (27.7-33.6) pg MCHC 34.0 (32.2-35.4) g/dL RDW 14.3 (11.5-15.5) % Plt Count 222 (125-369) X10(3)uL MPV 8.3 (7.4-10.4) fL Neut % (Auto) 57.1 (46-82) % Lymph % (Auto) 25.9 (13-37) % Oliver % (Auto) 11.3 (4-12) % Eos % (Auto) 1 (1.0-5.0) % Baso % (Auto) 5 H (0-2) % Neut # (Auto) 5.6 (1.6-8.3) # Lymph # (Auto) 2.5 (0.6-5.0) # Oliver # (Auto) 1.1 (0.0-1.3) # Eos # (Auto) 0.1 (0.0-0.8) # Baso # (Auto) 0.5 H (0.0-0.2) # PT (8.7-11.1) INR (0.89-1.13) APTT 30.4 (24.4-33.2) SECONDS Sodium (135-145) mmol/L Potassium (3.5-5.3) mmol/L Chloride (100-110) mmol/L Carbon Dioxide (21-32) mmol/L BUN (7-18) mg/dL Creatinine (0.55-1.02) mg/dL Est Cr Clr Drug Dosing Estimated GFR (MDRD) (>60) BUN/Creatinine Ratio (9-20) Glucose (80-116) mg/dL Calcium (8.6-10.2) mg/dL Creatine Kinase (60-160) IU/L Troponin I (<0.017-0.056) ng/mL TSH, Ultra Sensitive 3.89 H (0.36-3.74) IU/mL Urine Color (YELLOW) Urine Appearance (CLEAR) Urine pH (5.0-6.5) Ur Specific [place] (1.010-1.025) Urine Protein (NEGATIVE) mg/dL Urine Glucose (UA) (NEGATIVE) mg/dL Urine Ketones (NEGATIVE) mg/dL Urine Occult Blood (NEGATIVE) Urine Nitrite (NEGATIVE) Urine Bilirubin (NEGATIVE) Urine Urobilinogen (NEGATIVE) mg/dL Ur Leukocyte Esterase (NEGATIVE) Urine RBC (0) Urine WBC (0) Ur Squamous Epith Cells (NS,R,O) Urine Bacteria (NS) 09/11/18 09/11/18 09/11/18 Range/Units 17:15 17:15 17:15 WBC (4.5-12.0) X10-3/uL RBC (3.23-5.20) x10(6)uL Hgb (11.5-15.5) g/dL Hct (30.0-51.3) % MCV (80-96) fL MCH (27.7-33.6) pg MCHC (32.2-35.4) g/dL RDW (11.5-15.5) % Plt Count (125-369) X10(3)uL MPV (7.4-10.4) fL Neut % (Auto) (46-82) % Lymph % (Auto) (13-37) % Oliver % (Auto) (4-12) % Eos % (Auto) (1.0-5.0) % Baso % (Auto) (0-2) % Neut # (Auto) (1.6-8.3) # Lymph # (Auto) (0.6-5.0) # Oliver # (Auto) (0.0-1.3) # Eos # (Auto) (0.0-0.8) # Baso # (Auto) (0.0-0.2) # PT 9.3 (8.7-11.1) INR 0.96 (0.89-1.13) APTT (24.4-33.2) SECONDS Sodium 132 L (135-145) mmol/L Potassium 3.3 L (3.5-5.3) mmol/L Chloride 94 L (100-110) mmol/L Carbon Dioxide 29 (21-32) mmol/L BUN 34 H (7-18) mg/dL Creatinine 1.3 H (0.55-1.02) mg/dL Est Cr Clr Drug Dosing TNP Estimated GFR (MDRD) 39 L (>60) BUN/Creatinine Ratio 26.2 H (9-20) Glucose 102 (80-116) mg/dL Calcium 9.3 (8.6-10.2) mg/dL Creatine Kinase 105 (60-160) IU/L Troponin I < 0.017 L (<0.017-0.056) ng/mL TSH, Ultra Sensitive (0.36-3.74) IU/mL Urine Color (YELLOW) Urine Appearance (CLEAR) Urine pH (5.0-6.5) Ur Specific [place] (1.010-1.025) Urine Protein (NEGATIVE) mg/dL Urine Glucose (UA) (NEGATIVE) mg/dL Urine Ketones (NEGATIVE) mg/dL Urine Occult Blood (NEGATIVE) Urine Nitrite (NEGATIVE) Urine Bilirubin (NEGATIVE) Urine Urobilinogen (NEGATIVE) mg/dL Ur Leukocyte Esterase (NEGATIVE) Urine RBC (0) Urine WBC (0) Ur Squamous Epith Cells (NS,R,O) Urine Bacteria (NS) 09/11/18 09/11/18 09/11/18 Range/Units 17:29 23:55 23:55 WBC (4.5-12.0) X10-3/uL RBC (3.23-5.20) x10(6)uL Hgb (11.5-15.5) g/dL Hct (30.0-51.3) % MCV (80-96) fL MCH (27.7-33.6) pg MCHC (32.2-35.4) g/dL RDW (11.5-15.5) % Plt Count (125-369) X10(3)uL MPV (7.4-10.4) fL Neut % (Auto) (46-82) % Lymph % (Auto) (13-37) % Oliver % (Auto) (4-12) % Eos % (Auto) (1.0-5.0) % Baso % (Auto) (0-2) % Neut # (Auto) (1.6-8.3) # Lymph # (Auto) (0.6-5.0) # Oliver # (Auto) (0.0-1.3) # Eos # (Auto) (0.0-0.8) # Baso # (Auto) (0.0-0.2) # PT (8.7-11.1) INR (0.89-1.13) APTT (24.4-33.2) SECONDS Sodium (135-145) mmol/L Potassium 3.1 L (3.5-5.3) mmol/L Chloride (100-110) mmol/L Carbon Dioxide (21-32) mmol/L BUN (7-18) mg/dL Creatinine (0.55-1.02) mg/dL Est Cr Clr Drug Dosing Estimated GFR (MDRD) (>60) BUN/Creatinine Ratio (9-20) Glucose (80-116) mg/dL Calcium (8.6-10.2) mg/dL Creatine Kinase (60-160) IU/L Troponin I < 0.017 L (<0.017-0.056) ng/mL TSH, Ultra Sensitive (0.36-3.74) IU/mL Urine Color Yellow (YELLOW) Urine Appearance Clear (CLEAR) Urine pH 8.0 H (5.0-6.5) Ur Specific [place] 1.005 L (1.010-1.025) Urine Protein Negative (NEGATIVE) mg/dL Urine Glucose (UA) Normal (NEGATIVE) mg/dL Urine Ketones Negative (NEGATIVE) mg/dL Urine Occult Blood Negative (NEGATIVE) Urine Nitrite Negative (NEGATIVE) Urine Bilirubin Negative (NEGATIVE) Urine Urobilinogen Normal (NEGATIVE) mg/dL Ur Leukocyte Esterase Negative (NEGATIVE) Urine RBC 0-5 (0) Urine WBC 0-5 (0) Ur Squamous Epith Cells Occasional (NS,R,O) Urine Bacteria Rare H (NS) 09/11/18 09/12/18 09/12/18 Range/Units 23:55 06:15 06:15 WBC (4.5-12.0) X10-3/uL RBC (3.23-5.20) x10(6)uL Hgb (11.5-15.5) g/dL Hct (30.0-51.3) % MCV (80-96) fL MCH (27.7-33.6) pg MCHC (32.2-35.4) g/dL RDW (11.5-15.5) % Plt Count (125-369) X10(3)uL MPV (7.4-10.4) fL Neut % (Auto) (46-82) % Lymph % (Auto) (13-37) % Oliver % (Auto) (4-12) % Eos % (Auto) (1.0-5.0) % Baso % (Auto) (0-2) % Neut # (Auto) (1.6-8.3) # Lymph # (Auto) (0.6-5.0) # Oliver # (Auto) (0.0-1.3) # Eos # (Auto) (0.0-0.8) # Baso # (Auto) (0.0-0.2) # PT (8.7-11.1) INR (0.89-1.13) APTT 58.5 H (24.4-33.2) SECONDS Sodium (135-145) mmol/L Potassium 3.9 (3.5-5.3) mmol/L Chloride (100-110) mmol/L Carbon Dioxide (21-32) mmol/L BUN (7-18) mg/dL Creatinine (0.55-1.02) mg/dL Est Cr Clr Drug Dosing Estimated GFR (MDRD) (>60) BUN/Creatinine Ratio (9-20) Glucose (80-116) mg/dL Calcium (8.6-10.2) mg/dL Creatine Kinase (60-160) IU/L Troponin I < 0.017 L (<0.017-0.056) ng/mL TSH, Ultra Sensitive (0.36-3.74) IU/mL Urine Color (YELLOW) Urine Appearance (CLEAR) Urine pH (5.0-6.5) Ur Specific [place] (1.010-1.025) Urine Protein (NEGATIVE) mg/dL Urine Glucose (UA) (NEGATIVE) mg/dL Urine Ketones (NEGATIVE) mg/dL Urine Occult Blood (NEGATIVE) Urine Nitrite (NEGATIVE) Urine Bilirubin (NEGATIVE) Urine Urobilinogen (NEGATIVE) mg/dL Ur Leukocyte Esterase (NEGATIVE) Urine RBC (0) Urine WBC (0) Ur Squamous Epith Cells (NS,R,O) Urine Bacteria (NS) Med Orders - Current: Current Medications Allopurinol (Zyloprim) 150 mg PO DAILY [facility] Last Admin: 09/12/18 09:08 Dose: 150 mg Amlodipine Besylate (Norvasc) 5 mg PO DAILY [facility] Last Admin: 09/12/18 09:08 Dose: 5 mg Aspirin (Halfprin) 81 mg PO DAILY [facility] Carbidopa/Levodopa (Sinemet Cr 25-100 Mg) 1 tab PO BEDTIME [facility] Last Admin: 09/11/18 22:20 Dose: 1 tab Lisinopril/HCTZ (Lisinopril-Hctz 20-25 Mg) 1 tab PO DAILY@1200 [facility] Metoprolol Succinate (Toprol Xl) 100 mg PO DAILY@1700 [facility] Ondansetron HCl (Zofran) 4 mg IV Q4H PRN PRN Reason: Nausea/Vomiting Pantoprazole Sodium (Protonix Iv) 40 mg IVPUSH Q12H [facility] Last Admin: 09/12/18 06:08 Dose: 40 mg Sertraline HCl (Zoloft) 25 mg PO DAILY@1700 [facility] Simvastatin (Zocor) 20 mg PO DAILY@1700 [facility] Sodium Chloride (Saline Flush) 10 ml FLUSH ASDIRECTED PRN PRN Reason: flush for saline lock Last Admin: 09/12/18 07:33 Dose: 10 ml Discontinued Medications Amlodipine Besylate (Norvasc) 5 mg PO ASDIRECTED PRN PRN Reason: Hypertension Aspirin (Aspirin) 324 mg PO ONETIME ONE Stop: 09/11/18 16:57 Last Admin: 01/12/19 16:59 Dose: 324 mg Carbidopa/Levodopa (Sinemet 25-100 Mg) 1 tab PO BEDTIME [facility] Carbidopa/Levodopa (Sinemet 25-100 Mg) 1 tab PO ONETIME ONE Stop: 09/11/18 21:25 Last Admin: 09/11/18 22:20 Dose: Not Given Sodium Chloride (Normal Saline) 1,000 mls @ 125 mls/hr IV ASDIRECTED [facility] Last Admin: 09/11/18 18:40 Dose: 125 mls/hr Heparin Sodium/Sodium Chloride (Heparin 25,000 Units In 1/2 Ns 500 Ml) 25,000 units in 500 mls @ 15.816 mls/hr IV TITRATE [facility]; Protocol Last Admin: 09/11/18 19:40 Dose: 12 units/kg/hr, 15.816 mls/hr Metoprolol Succinate (Toprol Xl) 100 mg PO 1700 [facility] Metoprolol Succinate (Toprol Xl) 100 mg PO ONETIME ONE Stop: 09/11/18 21:21 Last Admin: 09/11/18 22:13 Dose: 100 mg Nitroglycerin (Nitro-Bid 2%) 1 gm TOP ONETIME ONE Stop: 09/11/18 18:19 Last Admin: 09/11/18 18:45 Dose: 1 gm Non-Formulary Medication (Lisinopril/Hydrochlorothiazide [Lisinopril-Hctz 20-25 Mg Tab]) 1 tab PO 1200 [facility] Potassium Chloride (Potassium Chloride Solution) 20 meq PO ONETIME ONE Stop: 09/11/18 18:05 Last Admin: 09/11/18 19:36 Dose: Not Given Potassium Chloride (Klor-Con M20) 20 meq PO ONETIME ONE Stop: 09/11/18 18:28 Last Admin: 09/11/18 18:45 Dose: 20 meq Potassium Chloride (Klor-Con M20) 40 meq PO ONETIME ONE Stop: 09/12/18 00:48 Last Admin: 09/12/18 01:04 Dose: 40 meq Sertraline HCl (Zoloft) 25 mg PO 1700 [facility] Sertraline HCl (Zoloft) 25 mg PO ONETIME ONE Stop: 09/11/18 21:23 Last Admin: 09/11/18 22:14 Dose: 25 mg Simvastatin (Zocor) 20 mg PO 1700 [facility] Simvastatin (Zocor) 20 mg PO ONETIME ONE Stop: 09/11/18 21:24 Last Admin: 09/11/18 22:14 Dose: 20 mg
[2018-09-12] MEDS: HYDROCHLOROTHIAZIDE PO SCH ×2 (10:36→12:16)
[2018-09-12] MEDS: LISINOPRIL PO SCH ×2 (10:36→12:16)
[2018-09-12] MEDS ORDERED: Simvastatin 20 MG Tab**OWN MED PO SCH (17:00)
[2018-09-12] MEDS ORDERED: Metoprolol Succinate 100 MG Tab.ER PO SCH (17:00)
[2018-09-12] MEDS ORDERED: Simvastatin 20 MG Tab PO SCH (17:00)
[2018-09-12] MEDS ORDERED: Sertraline 25 MG Tab PO SCH (17:00)
[2018-09-12] MEDS ORDERED: Sertraline 25 MG Tab**OWN MED PO SCH (17:00)
[2018-09-12] MEDS ORDERED: Metoprolol Succinate 100 MG Tab.ER**OWN MED PO SCH (17:00)
[2018-09-12] MEDS ORDERED: Carbidopa/Levodopa 25-100 MG Tab PO SCH (21:00)
--- NOTE | 2018-09-13 13:48 | CR ---
INDICATION: Chest pain. CHEST ONE VIEW: AP upright view of the chest was obtained and revealed the heart to be normal in appearance. The aorta is tortuous with calcification in the arch. Overlying EKG leads are noted. An active infiltrate or effusion was not identified. IMPRESSION: 1. No acute process. 2. ASD aorta. MTDD
== END 2018-09-12 12:33 ==
LOC: FB.ED 16:31 → FB.MS 18:14 → UNDOADMOB 18:14
PROVIDERS: ADMIT Family Medicine; ATTEND Family Medicine
DX: R07.89 Other chest pain (principal); I48.91 Unspecified atrial fibrillation; I13.0 Hypertensive heart and chronic kidney disease with heart failure and stage 1 through stage 4 chronic kidney disease, or unspecified chronic kidney disease; N18.3 Chronic kidney disease, stage 3 (moderate); I50.9 Heart failure, unspecified; G25.81 Restless legs syndrome; E78.5 Hyperlipidemia, unspecified; Z87.891 Personal history of nicotine dependence; Z79.82 Long term (current) use of aspirin; Z82.49 Family history of ischemic heart disease and other diseases of the circulatory system
CPT/HCPCS: 36415; 71045; 80048; 81001; 82550; 84132; 84443; 84484; 85025; 85610; 85730; 93005; 96361; 96365; 96366; 96375; 96376; 99285; A9270; C9113; G0378; J1644; J7030; 96374

== ENCOUNTER 2020-03-13 11:05 | Inpatient (IN) | payer MEDICARE, OTHER ==
[2020-03-14] MEDS ORDERED: rOPINIRole 0.5 MG Tab PO PRN ×2 (15:37→19:41)
[2020-03-14] MEDS ORDERED: Warfarin Sliding Scale PO SCH (15:45)
--- NOTE | 2020-03-14 16:21 | PCM.HP.2 ---
H&P History of Present Illness - General Date of Service: 03/14/20 Admit Problem/Dx: Admission Diagnosis/Problem Admission Diagnosis/Problem Weakness Source of Information: Old Records - History of Present Illness Initial Comments - Free Text/Narative: 85 yo admitted from [facility] for wound management and rehab.She had a wound debridement and Wound Vac placement on an nonhealing ulcer of left lower extremity. The original wound was probably from a cat bite. 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 Her past history includes HTN,CHF,afib and CKD,all stable. DENIES ANY6 PAIN WHEN ASKED AT PRESENT TIME. Pain Score (Numeric/FACES): 0 - Related Data Allergies/Adverse Reactions: Allergies Allergy/AdvReac Type Severity Reaction Status Date / Time No Known Allergies Allergy Verified 09/11/18 17:26 Home Medications: Home Meds Furosemide 20 mg PO Q48H 09/11/18 [History] Lisinopril/Hydrochlorothiazide [Lisinopril-Hctz 20-25 mg Tab] 1 tab PO DAILY 09/11/18 [History] Metoprolol Succinate 100 mg PO BEDTIME 09/11/18 [History] Sertraline [Zoloft] 25 mg PO BEDTIME 09/11/18 [History] allopurinoL [Zyloprim] 150 mg PO DAILY 09/11/18 [History] Acetic Acid [Acetic Acid 0.25%] 25 ml IRR DAILY 03/14/20 [History] Brimonidine [Alphagan P 0.15% Ophth Soln] 1 drop EYELF BID 03/14/20 [History] Calcium Carbonate/Vitamin D3 [Calcium 1,000 + D3 Caplet] 1 tab PO DAILY 03/14/20 [History] Cranberry Extract/Vit C [Azo Cranberry Softgel] 2 cap PO DAILY 03/14/20 [History] Enoxaparin [Lovenox] 60 mg PO BID 03/14/20 [History] Latanoprost [Xalatan 0.005% Ophth Soln] 1 drop EYEBOTH BEDTIME 03/14/20 [History] Upper Tract-3/DHA/Epa/Fish Oil [Upper Tract-3 Fish Oil 1,000 MG Sfgl] 1,000 mg PO DAILY@1200 03/14/20 [History] Rosuvastatin [Crestor] 20 mg PO BEDTIME 03/14/20 [History] Warfarin Sliding Scale [Coumadin Sliding Scale] 1 tab PO DAILY 03/14/20 [History] oxyCODONE 5 mg PO Q6H PRN 03/14/20 [History] rOPINIRole [Requip] 0.5 mg PO DAILY PRN 03/14/20 [History] Past Medical History HEENT History: Reports: Cataract, Impaired Vision Other HEENT History: wears glasses Cardiovascular History: Reports: Afib, Hypertension Other Cardiovascular History: CHF Genitourinary History: Reports: Renal Disease, UTI, Recurrent [employer] History: Reports: Other OB/BYN History: had a tubal and had a the appy then as well Musculoskeletal History: Reports: Arthritis, Gout, Neck Pain, Chronic Neurological History: Reports: Other (See Below) Other Neuro History: restless leg syndrome Oncologic (Cancer) History: Reports: Squamous Cell Carcinoma Other Oncologic History: arms, behind knee, foot,L) cheek Dermatologic History: Reports: Other (See Below) Other Dermatologic History: squamous cell carcinoma - Infectious Disease History Infectious Disease History: Reports: Chicken Pox, Measles, Mumps, Pertussis (Whooping Cough) - Past Surgical History HEENT Surgical History: Reports: Cataract Surgery, Other (See Below) Other HEENT Surgeries/Procedures: bilt cataract Cardiovascular Surgical History: Reports: None GI Surgical History: Reports: Appendectomy, Colonoscopy Female Surgical History: Reports: Hysterectomy Musculoskeletal Surgical History: Reports: Hip Replacement, Other (See Below) Other Musculoskeletal Surgeries/Procedures:: Right Dermatological Surgical History: Reports: Skin Graft, Other (See Below) Social & Family History - Family History Family Medical History: Noncontributory - Tobacco Use Smoking Status *Q: Former Smoker Used Tobacco, but Quit: Yes Month/Year Tobacco Last Used: 2009 - Caffeine Use Caffeine Use: Reports: None - Recreational Drug Use Recreational Drug Use: No H&P Review of Systems - Review of Systems: Review Of Systems: Comprehensive ROS is negative, except as noted in HPI. Exam - Exam Exam: See Below - Vital Signs Vital Signs: Last Vital Signs Temp 97.8 F 03/14/20 14:16 Pulse 70 03/14/20 14:16 Resp 18 03/14/20 14:16 BP 124/59 L 03/14/20 14:16 Pulse Ox 97 03/14/20 14:16 Weight: 65.572 kg - Exam General: Alert, Oriented HEENT: PERRLA Neck: Supple Lungs: Clear to Auscultation Cardiovascular: Irregular Rhythm GI/Abdominal Exam: Normal Bowel Sounds Extremities: Other (Wound VAC noted,r lower ext) Neurological: Cranial Nerves Intact Neuro Extensive - Mental Status: Alert, Oriented x3 Psychiatric: Alert, Normal Affect, Normal Mood Sepsis Event Note - Evaluation Sepsis Screening Result: No Definite Risk - Focused Exam Vital Signs: Vital Signs Temp Pulse Resp BP Pulse Ox 03/14/20 14:16 97.8 F 70 18 124/59 L 97 Date Exam was Performed: 03/15/20 Time Exam was Performed: 08:43 - Problem List (1) Encounter for management of wound VAC SNOMED Code(s): 806421710 ICD Code: [id number] - Status: Acute Current Visit: Yes (2) Protein-energy malnutrition SNOMED Code(s): 376577079 ICD Code: E46 - UNSPECIFIED PROTEIN-CALORIE MALNUTRITION Status: Chronic Current Visit: Yes Qualifiers: Protein-calorie malnutrition severity: moderate Qualified Code(s): E44.0 - Moderate protein-calorie malnutrition (3) Weakness SNOMED Code(s): 91838148 ICD Code: R53.1 - WEAKNESS Status: Acute Current Visit: Yes (4) Atrial fibrillation with controlled ventricular rate SNOMED Code(s): 43823234 ICD Code: I48.91 - UNSPECIFIED ATRIAL FIBRILLATION Status: Chronic Current Visit: No Problem Details: Resolved. Patient had not missed a dose of her beta melba. (5) CKD (chronic kidney disease) stage 3, GFR 30-59 ml/min SNOMED Code(s): 775361401 ICD Code: N18.3 - CHRONIC KIDNEY DISEASE, STAGE 3 (MODERATE) Status: Chronic Current Visit: No Problem Details: Monitor, avoid renal toxic medication. (6) HTN (hypertension) SNOMED Code(s): 12414303 ICD Code: I10 - ESSENTIAL (PRIMARY) HYPERTENSION Status: Chronic Current Visit: No Problem Details: Stable, monitor. Continue home meds. Qualifiers: Hypertension type: essential hypertension Qualified Code(s): I10 - Essential (primary) hypertension (7) Squamous cell carcinoma SNOMED Code(s): 544230570 ICD Code: WMF4290 - Status: Acute Current Visit: Yes Problem List Initiated/Reviewed/Updated: Yes Orders Last 24hrs: Active Orders 24 hr Category Date Time Status Patient Status [ADT] Routine ADT 03/14/20 15:35 Active Height and Weight [RC] WEEKLY Care 03/14/20 15:35 Active Oxygen Therapy [RC] PRN Care 03/14/20 15:35 Active Vital Signs [RC] 0800 Care 03/14/20 15:35 Active OT Evaluation and Treatment [CONS] Routine Cons 03/14/20 15:35 Active PT Evaluation and Treatment [CONS] Routine Cons 03/14/20 15:35 Active Regular Diet [DIET] Diet 03/14/20 Breakfast Active INR,PT,PROTHROMBIN TIME [COAG] DAILY Lab 03/15/20 15:37 Ordered INR,PT,PROTHROMBIN TIME [COAG] DAILY Lab 03/16/20 15:37 Ordered INR,PT,PROTHROMBIN TIME [COAG] DAILY Lab 03/17/20 15:37 Ordered INR,PT,PROTHROMBIN TIME [COAG] DAILY Lab 03/18/20 15:37 Ordered INR,PT,PROTHROMBIN TIME [COAG] DAILY Lab 03/19/20 15:37 Ordered INR,PT,PROTHROMBIN TIME [COAG] DAILY Lab 03/20/20 15:37 Ordered INR,PT,PROTHROMBIN TIME [COAG] DAILY Lab 03/21/20 15:37 Ordered INR,PT,PROTHROMBIN TIME [COAG] Routine Lab 03/14/20 15:38 Ordered Acetic Acid [Acetic Acid 0.25%] Med 03/15/20 09:00 Pending 25 ml IRR DAILY Brimonidine [Alphagan 0.2% [facility] Soln] Med 03/14/20 21:00 Active 0 ml EYELF BID Calcium Carbonate [Oyster Shell Calcium] Med 03/15/20 09:00 Active 1,000 mg PO DAILY Cranberry Med 03/15/20 09:00 Active 500 mg PO DAILY Enoxaparin [Lovenox] Med 03/14/20 21:00 Active 60 mg SUBCUT BID Fish Oil/Upper Tract-3 Fatty Acids [Fish Oil] Med 03/15/20 12:00 Active 1 gm PO DAILY@1200 Furosemide [Lasix] Med 03/15/20 09:00 Active 20 mg PO Q48H Hydrochlorothiazide/Lisinopril [Lisinopril-HCTZ 20-25 Med 03/15/20 09:00 Active MG] 1 tab PO DAILY Latanoprost [Xalatan 0.005% Ophth Soln] Med 03/14/20 21:00 Active 0 ml EYEBOTH BEDTIME Metoprolol Succinate [Toprol XL] Med 03/14/20 21:00 Active 100 mg PO BEDTIME Rosuvastatin [Crestor] Med 03/14/20 21:00 Active 20 mg PO BEDTIME Sertraline [Zoloft] Med 03/14/20 21:00 Active 25 mg PO BEDTIME Warfarin Sliding Scale [Coumadin Sliding Scale] Med 03/14/20 15:45 Pending 1 each PO ASDIRECTED allopurinoL [Zyloprim] Med 03/15/20 09:00 Active 150 mg PO DAILY oxyCODONE Med 03/14/20 15:37 Active 5 mg PO Q6H PRN rOPINIRole [Requip] Med 03/14/20 15:37 Active 0.5 mg PO DAILY PRN Resuscitation Status Routine Resus Stat 03/14/20 15:35 Ordered Medication Orders Allopurinol (Zyloprim) 150 mg PO DAILY [facility] Brimonidine Tartrate (Alphagan 0.2% Ophth Soln) 0 ml EYELF BID [facility] Calcium Carbonate/Glycine (Oyster Shell Calcium) 1,000 mg PO DAILY [facility] Cranberry (Cranberry) 500 mg PO DAILY [facility] Enoxaparin Sodium (Lovenox) 60 mg SUBCUT BID [facility] Stop: 03/16/20 09:01 Fish Oil (Fish Oil) 1 gm PO DAILY@1200 [facility] Furosemide (Lasix) 20 mg PO Q48H [facility] Lisinopril/HCTZ (Lisinopril-Hctz 20-25 Mg) 1 tab PO DAILY [facility] Latanoprost (Xalatan 0.005% Ophth Soln) 0 ml EYEBOTH BEDTIME [facility] Metoprolol Succinate (Toprol Xl) 100 mg PO BEDTIME [facility] Non-Formulary Medication (Acetic Acid [Acetic Acid 0.25%]) 25 ml IRR DAILY [facility] Oxycodone HCl (Oxycodone) 5 mg PO Q6H PRN PRN Reason: SEVERE PAIN Ropinirole HCl (Requip) 0.5 mg PO DAILY PRN PRN Reason: RESTLESS LEGS Last Admin: 03/14/20 15:56 Dose: 0.5 mg Documented by: [id number] Rosuvastatin Calcium (Crestor) 20 mg PO BEDTIME [facility] Sertraline HCl (Zoloft) 25 mg PO BEDTIME [facility] Warfarin Sodium (Coumadin Sliding Scale) 1 each PO ASDIRECTED [facility] Assessment/Plan Comment:: Admit to Swing Bed. Consult PT/OT. Continue Meds and orders as from he discharging facility.
[2020-03-14] MEDS: oxyCODONE 5 MG Tab PO PRN (19:50)
[2020-03-14] MEDS ORDERED: rOPINIRole 1 MG Tab PO PRN (20:48)
[2020-03-14] MEDS: Brimonidine 0.2% Ophth Soln 5 ML Bottle EYELF SCH (21:04)
[2020-03-14] MEDS: rOPINIRole 0.5 MG Tab PO PRN (21:05)
[2020-03-14] MEDS: Rosuvastatin 20 MG Tab PO SCH (21:05)
[2020-03-14] MEDS: Metoprolol Succinate 100 MG Tab.ER PO SCH (21:12)
[2020-03-14] MEDS: Enoxaparin 60 MG/0.6 ML Syringe SUBCUT SCH (21:16)
[2020-03-14] MEDS: Latanoprost 0.005% Ophth Soln 2.5 ML Bottle EYEBOTH SCH (21:17)
[2020-03-14] MEDS: Sertraline 25 MG Tab PO SCH (21:18)
[2020-03-15] MEDS: oxyCODONE 5 MG Tab PO PRN ×3 (05:24→17:26)
[2020-03-15] MEDS: Cranberry 500 MG Cap PO SCH (08:32)
[2020-03-15] MEDS: Brimonidine 0.2% Ophth Soln 5 ML Bottle EYELF SCH ×2 (08:32→20:46)
[2020-03-15] MEDS: Furosemide 20 MG Tab PO SCH (08:33)
[2020-03-15] MEDS: Hydrochlorothiazide/Lisinopril 25-20 MG Tab PO SCH (08:33)
[2020-03-15] MEDS: Enoxaparin 60 MG/0.6 ML Syringe SUBCUT SCH (08:34)
[2020-03-15] MEDS: Calcium Carbonate 500 MG Tablet PO SCH (08:34)
[2020-03-15] MEDS: Allopurinol 300 MG Tab PO SCH (08:35)
[2020-03-15] MEDS ORDERED: Warfarin Sliding Scale PO SCH (09:00)
[2020-03-15] MEDS ORDERED: ACETIC ACID IRR SCH (09:00)
[2020-03-15] MEDS: Fish Oil/Omega-3 Fatty Acids 1 Gm Cap PO SCH (11:15)
[2020-03-15] MEDS ORDERED: Warfarin 5 MG Tab PO ONE (16:00)
[2020-03-15] MEDS: rOPINIRole 0.5 MG Tab PO PRN (17:26)
[2020-03-15] MEDS: Sertraline 25 MG Tab PO SCH (20:46)
[2020-03-15] MEDS: Metoprolol Succinate 100 MG Tab.ER PO SCH (20:46)
[2020-03-15] MEDS: Rosuvastatin 20 MG Tab PO SCH (20:46)
[2020-03-15] MEDS: Latanoprost 0.005% Ophth Soln 2.5 ML Bottle EYEBOTH SCH (20:48)
[2020-03-16] MEDS: rOPINIRole 0.5 MG Tab PO PRN ×2 (03:34→20:24)
[2020-03-16] MEDS: Hydrochlorothiazide/Lisinopril 25-20 MG Tab PO SCH (08:54)
[2020-03-16] MEDS: Cranberry 500 MG Cap PO SCH (08:54)
[2020-03-16] MEDS: Allopurinol 300 MG Tab PO SCH (08:54)
[2020-03-16] MEDS: Calcium Carbonate 500 MG Tablet PO SCH (08:54)
[2020-03-16] MEDS: Brimonidine 0.2% Ophth Soln 5 ML Bottle EYELF SCH ×2 (08:55→20:24)
[2020-03-16] MEDS: Bacitracin Oint 28.35 GM Tube TOP SCH (11:30)
[2020-03-16] MEDS: Fish Oil/Omega-3 Fatty Acids 1 Gm Cap PO SCH (12:30)
[2020-03-16] MEDS: oxyCODONE 5 MG Tab PO PRN ×2 (13:13→20:25)
[2020-03-16] MEDS ORDERED: Warfarin 2.5 MG Tab PO ONE (16:00)
[2020-03-16] MEDS: Sertraline 25 MG Tab PO SCH (20:24)
[2020-03-16] MEDS: Metoprolol Succinate 100 MG Tab.ER PO SCH (20:24)
[2020-03-16] MEDS: Rosuvastatin 20 MG Tab PO SCH (20:24)
[2020-03-16] MEDS: Latanoprost 0.005% Ophth Soln 2.5 ML Bottle EYEBOTH SCH (20:25)
[2020-03-17] MEDS: oxyCODONE 5 MG Tab PO PRN ×3 (03:59→18:35)
[2020-03-17] MEDS: rOPINIRole 0.5 MG Tab PO PRN ×2 (04:01→19:53)
[2020-03-17] MEDS: Furosemide 20 MG Tab PO SCH (09:10)
[2020-03-17] MEDS: Bacitracin Oint 28.35 GM Tube TOP SCH (09:10)
[2020-03-17] MEDS: Cranberry 500 MG Cap PO SCH (09:10)
[2020-03-17] MEDS: Brimonidine 0.2% Ophth Soln 5 ML Bottle EYELF SCH ×2 (09:10→20:49)
[2020-03-17] MEDS: Calcium Carbonate 500 MG Tablet PO SCH (09:10)
[2020-03-17] MEDS: Hydrochlorothiazide/Lisinopril 25-20 MG Tab PO SCH (09:14)
[2020-03-17] MEDS: Allopurinol 300 MG Tab PO SCH (09:15)
[2020-03-17] MEDS: Fish Oil/Omega-3 Fatty Acids 1 Gm Cap PO SCH (12:15)
[2020-03-17] MEDS ORDERED: Warfarin 2.5 MG Tab PO ONE (16:00)
[2020-03-17] MEDS: Metoprolol Succinate 100 MG Tab.ER PO SCH (20:50)
[2020-03-17] MEDS: Latanoprost 0.005% Ophth Soln 2.5 ML Bottle EYEBOTH SCH (20:50)
[2020-03-17] MEDS: Sertraline 25 MG Tab PO SCH (20:50)
[2020-03-17] MEDS: Rosuvastatin 20 MG Tab PO SCH (20:50)
[2020-03-18] MEDS: rOPINIRole 0.5 MG Tab PO PRN ×2 (04:39→22:08)
[2020-03-18] MEDS: oxyCODONE 5 MG Tab PO PRN ×3 (04:40→16:42)
[2020-03-18] MEDS: Brimonidine 0.2% Ophth Soln 5 ML Bottle EYELF SCH ×2 (08:43→21:04)
[2020-03-18] MEDS: Bacitracin Oint 28.35 GM Tube TOP SCH (08:43)
[2020-03-18] MEDS: Hydrochlorothiazide/Lisinopril 25-20 MG Tab PO SCH (08:43)
[2020-03-18] MEDS: Calcium Carbonate 500 MG Tablet PO SCH (08:44)
[2020-03-18] MEDS: Allopurinol 300 MG Tab PO SCH (08:44)
[2020-03-18] MEDS: Cranberry 500 MG Cap PO SCH (08:44)
[2020-03-18] MEDS: Fish Oil/Omega-3 Fatty Acids 1 Gm Cap PO SCH (12:06)
[2020-03-18] MEDS ORDERED: Warfarin 2.5 MG Tab PO ONE (16:00)
[2020-03-18] MEDS: Metoprolol Succinate 100 MG Tab.ER PO SCH (21:05)
[2020-03-18] MEDS: Rosuvastatin 20 MG Tab PO SCH (21:05)
[2020-03-18] MEDS: Sertraline 25 MG Tab PO SCH (21:05)
[2020-03-18] MEDS: Latanoprost 0.005% Ophth Soln 2.5 ML Bottle EYEBOTH SCH (21:06)
[2020-03-19] MEDS: rOPINIRole 0.5 MG Tab PO PRN ×2 (06:14→20:16)
[2020-03-19] MEDS: oxyCODONE 5 MG Tab PO PRN ×3 (06:18→20:16)
[2020-03-19] MEDS: Brimonidine 0.2% Ophth Soln 5 ML Bottle EYELF SCH ×2 (08:17→20:10)
[2020-03-19] MEDS: Bacitracin Oint 28.35 GM Tube TOP SCH (08:17)
[2020-03-19] MEDS: Furosemide 20 MG Tab PO SCH (08:18)
[2020-03-19] MEDS: Hydrochlorothiazide/Lisinopril 25-20 MG Tab PO SCH (08:18)
[2020-03-19] MEDS: Cranberry 500 MG Cap PO SCH (08:18)
[2020-03-19] MEDS: Allopurinol 300 MG Tab PO SCH (08:19)
[2020-03-19] MEDS: Calcium Carbonate 500 MG Tablet PO SCH (08:19)
[2020-03-19] MEDS: Fish Oil/Omega-3 Fatty Acids 1 Gm Cap PO SCH (13:18)
[2020-03-19] MEDS ORDERED: Warfarin 5 MG Tab PO ONE (16:00)
--- NOTE | 2020-03-19 17:09 | PCM.PN ---
- General Info Date of Service: 03/19/20 Admission Dx/Problem (Free Text): Andria is doing well as far as her wounds are concerned, healing well, hematomas on graft site are improving compared to Plastics pictures taken on 03/15. She is toe touch weight bearing with CAM boot, she is progressing with PT/OT well, currently working on steps once she mets that goal then would be ready for discharge. Care conference today, family advised they will need to install handrails for her outside steps prior to discharge. Her blood pressures have been good when taken in bed but she has been dizzy, lightheaded with PT so they checked her pressures and were 98/43 and went up once they got her back in bed. She states she only takes her blood pressure medications if needed at home. - Patient Data Vitals - Most Recent: Last Vital Signs Temp 97.7 F 03/19/20 08:00 Pulse 64 03/19/20 08:00 Resp 18 03/19/20 08:00 BP 132/57 L 03/19/20 08:18 Pulse Ox 98 03/19/20 08:00 Weight - Most Recent: 144 lb 9 oz Lab Results Last 24 Hours: Laboratory Results - last 24 hr 03/19/20 Range/Units 06:40 PT 23.0 H (9.0-11.1) sec INR 2.25 H (1.00-1.24) Med Orders - Current: Current Medications Allopurinol (Zyloprim) 150 mg PO DAILY [facility] Last Admin: 03/19/20 08:19 Dose: 150 mg Documented by: Bacitracin (Bacitracin Oint) 1 gm TOP DAILY [facility] Last Admin: 03/19/20 08:17 Dose: 1 applic Documented by: Brimonidine Tartrate (Alphagan 0.2% Ophth Soln) 0 ml EYELF BID [facility] Last Admin: 03/19/20 08:17 Dose: 1 drop Documented by: Calcium Carbonate/Glycine (Oyster Shell Calcium) 1,000 mg PO DAILY [facility] Last Admin: 03/19/20 08:19 Dose: 1,000 mg Documented by: Cranberry (Cranberry) 500 mg PO DAILY [facility] Last Admin: 03/19/20 08:18 Dose: 500 mg Documented by: Fish Oil (Fish Oil) 1 gm PO DAILY@1200 [facility] Last Admin: 07/20/20 13:18 Dose: 1 gm Documented by: Furosemide (Lasix) 20 mg PO Q48H [facility] Last Admin: 03/19/20 08:18 Dose: 20 mg Documented by: Lisinopril/HCTZ (Lisinopril-Hctz 20-25 Mg) 1 tab PO DAILY [facility] Last Admin: 03/19/20 08:18 Dose: 1 tab Documented by: Latanoprost (Xalatan 0.005% Ophth Soln) 0 ml EYEBOTH BEDTIME [facility] Last Admin: 03/18/20 21:06 Dose: 1 drop Documented by: Metoprolol Succinate (Toprol Xl) 100 mg PO BEDTIME [facility] Last Admin: 03/18/20 21:05 Dose: 100 mg Documented by: Oxycodone HCl (Oxycodone) 5 mg PO Q6H PRN PRN Reason: SEVERE PAIN Last Admin: 03/19/20 13:19 Dose: 5 mg Documented by: Ropinirole HCl (Requip) 0.5 mg PO TID PRN PRN Reason: RESTLESS LEGS Last Admin: 03/19/20 06:14 Dose: 0.5 mg Documented by: Rosuvastatin Calcium (Crestor) 20 mg PO BEDTIME [facility] Last Admin: 03/18/20 21:05 Dose: 20 mg Documented by: Sertraline HCl (Zoloft) 25 mg PO BEDTIME [facility] Last Admin: 03/18/20 21:05 Dose: 25 mg Documented by: Warfarin Sodium (Coumadin Sliding Scale) 1 each PO ASDIRECTED [facility] Discontinued Medications Enoxaparin Sodium (Lovenox) 60 mg SUBCUT BID [facility] Stop: 03/16/20 09:01 Last Admin: 03/15/20 08:34 Dose: 60 mg Documented by: Non-Formulary Medication (Acetic Acid [Acetic Acid 0.25%]) 25 ml IRR DAILY [facility] Last Admin: 03/15/20 14:12 Dose: Not Given Documented by: Ropinirole HCl (Requip) 0.5 mg PO DAILY PRN PRN Reason: RESTLESS LEGS Last Admin: 03/14/20 15:56 Dose: 0.5 mg Documented by: Ropinirole HCl (Requip) 0.5 mg PO TID PRN PRN Reason: RESTLESS LEGS Ropinirole HCl (Requip) 0.5 mg PO TID PRN PRN Reason: RESTLESS LEGS Warfarin Sodium (Coumadin) 5 mg PO ONETIME ONE Stop: 03/15/20 16:01 Last Admin: 03/15/20 16:12 Dose: 5 mg Documented by: Warfarin Sodium (Coumadin) 2.5 mg PO ONETIME ONE Stop: 03/16/20 16:01 Last Admin: 03/16/20 16:11 Dose: 2.5 mg Documented by: Warfarin Sodium (Coumadin) 2.5 mg PO ONETIME ONE Stop: 03/17/20 16:01 Last Admin: 03/17/20 16:01 Dose: 2.5 mg Documented by: Warfarin Sodium (Coumadin) 2.5 mg PO ONETIME ONE Stop: 03/18/20 16:01 Last Admin: 03/18/20 16:43 Dose: 2.5 mg Documented by: Warfarin Sodium (Coumadin) 5 mg PO ONETIME ONE Stop: 03/19/20 16:01 - Exam General: Alert, Oriented, Cooperative, No Acute Distress Lungs: Clear to Auscultation, Normal Respiratory Effort Cardiovascular: Regular Rate, Regular Rhythm GI/Abdominal Exam: Normal Bowel Sounds, Soft, Non-Tender, No Distention Extremities: Other (CAM boot on left foot) Sepsis Event Note - Evaluation Sepsis Screening Result: No Definite Risk - Focused Exam Vital Signs: Vital Signs Temp Pulse Resp BP BP Pulse Ox 03/19/20 08:18 132/57 L 03/19/20 08:00 97.7 F 64 18 132/57 L 98 Date Exam was Performed: 03/19/20 Time Exam was Performed: 17:03 - Problem List & Annotations (1) S/P split thickness skin graft SNOMED Code(s): 528668340, 498483861 Code(s): Z94.5 - SKIN TRANSPLANT STATUS Status: Acute Current Visit: Yes (2) Squamous cell carcinoma SNOMED Code(s): 953502521 Code(s): SYH1237 - Status: Acute Current Visit: Yes (3) Protein-energy malnutrition SNOMED Code(s): 669971906 Code(s): E46 - UNSPECIFIED PROTEIN-CALORIE MALNUTRITION Status: Chronic Current Visit: Yes Qualifiers: Protein-calorie malnutrition severity: moderate Qualified Code(s): E44.0 - Moderate protein-calorie malnutrition (4) CKD (chronic kidney disease) stage 3, GFR 30-59 ml/min SNOMED Code(s): 186180604 Code(s): N18.3 - CHRONIC KIDNEY DISEASE, STAGE 3 (MODERATE) Status: Chronic Current Visit: No Annotation/Comment:: Monitor, avoid renal toxic medication. (5) HTN (hypertension) SNOMED Code(s): 51985877 Code(s): I10 - ESSENTIAL (PRIMARY) HYPERTENSION Status: Chronic Current Visit: No Qualifiers: Hypertension type: essential hypertension Qualified Code(s): I10 - Essential (primary) hypertension Annotation/Comment:: Stable, monitor. Continue home meds. - Problem List Review Problem List Initiated/Reviewed/Updated: Yes - Plan Plan:: 1. Consult PT/OT. 2. Wound care per Plastics, see wound care orders. Wound vac removed at 03/15 visit with Plastic surgery. 3. Will have staff check her blood pressure sitting or standing prior to medic ation administration and hold meds if <120.
[2020-03-19] MEDS: Latanoprost 0.005% Ophth Soln 2.5 ML Bottle EYEBOTH SCH (20:10)
[2020-03-19] MEDS: Rosuvastatin 20 MG Tab PO SCH (20:11)
[2020-03-19] MEDS: Metoprolol Succinate 100 MG Tab.ER PO SCH (20:12)
[2020-03-19] MEDS: Sertraline 25 MG Tab PO SCH (20:18)
[2020-03-20] MEDS: rOPINIRole 0.5 MG Tab PO PRN ×2 (06:51→18:40)
[2020-03-20] MEDS: Hydrochlorothiazide/Lisinopril 25-20 MG Tab PO SCH (08:30)
[2020-03-20] MEDS: Cranberry 500 MG Cap PO SCH (08:33)
[2020-03-20] MEDS: Brimonidine 0.2% Ophth Soln 5 ML Bottle EYELF SCH ×2 (08:33→20:29)
[2020-03-20] MEDS: Bacitracin Oint 28.35 GM Tube TOP SCH (08:34)
[2020-03-20] MEDS: Calcium Carbonate 500 MG Tablet PO SCH (08:34)
[2020-03-20] MEDS: Allopurinol 300 MG Tab PO SCH (08:35)
[2020-03-20] MEDS: oxyCODONE 5 MG Tab PO PRN ×2 (11:23→18:40)
[2020-03-20] MEDS: Fish Oil/Omega-3 Fatty Acids 1 Gm Cap PO SCH (11:24)
[2020-03-20] MEDS ORDERED: Warfarin 5 MG Tab PO ONE (16:00)
[2020-03-20] MEDS: Rosuvastatin 20 MG Tab PO SCH (20:27)
[2020-03-20] MEDS: Metoprolol Succinate 50 MG Tab.ER PO SCH (20:27)
[2020-03-20] MEDS: Sertraline 25 MG Tab PO SCH (20:27)
[2020-03-20] MEDS: Latanoprost 0.005% Ophth Soln 2.5 ML Bottle EYEBOTH SCH (20:29)
[2020-03-21] MEDS: rOPINIRole 0.5 MG Tab PO PRN ×2 (01:50→18:55)
[2020-03-21] MEDS: oxyCODONE 5 MG Tab PO PRN ×2 (01:50→09:02)
[2020-03-21] MEDS: Allopurinol 300 MG Tab PO SCH (08:50)
[2020-03-21] MEDS: Calcium Carbonate 500 MG Tablet PO SCH (08:51)
[2020-03-21] MEDS: Cranberry 500 MG Cap PO SCH (08:51)
[2020-03-21] MEDS: Bacitracin Oint 28.35 GM Tube TOP SCH (08:51)
[2020-03-21] MEDS: Brimonidine 0.2% Ophth Soln 5 ML Bottle EYELF SCH ×2 (08:52→20:05)
[2020-03-21] MEDS: Furosemide 20 MG Tab PO SCH (08:57)
[2020-03-21] MEDS: Fish Oil/Omega-3 Fatty Acids 1 Gm Cap PO SCH (15:08)
[2020-03-21] MEDS: Acetaminophen/HYDROcodone 325-5 MG Tab PO PRN ×2 (15:59→22:47)
[2020-03-21] MEDS ORDERED: Warfarin 5 MG Tab PO ONE (16:00)
[2020-03-21] MEDS: Latanoprost 0.005% Ophth Soln 2.5 ML Bottle EYEBOTH SCH (20:05)
[2020-03-21] MEDS: Rosuvastatin 20 MG Tab PO SCH (20:06)
[2020-03-21] MEDS: Sertraline 25 MG Tab PO SCH (20:07)
[2020-03-21] MEDS: Metoprolol Succinate 50 MG Tab.ER PO SCH (21:27)
[2020-03-22] MEDS: Brimonidine 0.2% Ophth Soln 5 ML Bottle EYELF SCH ×2 (08:24→20:01)
[2020-03-22] MEDS: Acetaminophen/HYDROcodone 325-5 MG Tab PO PRN ×3 (08:25→20:17)
[2020-03-22] MEDS: rOPINIRole 1 MG Tab ONE ×2 (08:25→08:34)
[2020-03-22] MEDS: Cranberry 500 MG Cap PO SCH (08:25)
[2020-03-22] MEDS: Allopurinol 300 MG Tab PO SCH (08:26)
[2020-03-22] MEDS: Calcium Carbonate 500 MG Tablet PO SCH (08:26)
[2020-03-22] MEDS: Bacitracin Oint 28.35 GM Tube TOP SCH (08:26)
[2020-03-22] MEDS: rOPINIRole 0.5 MG Tab PO PRN ×2 (08:34→13:22)
[2020-03-22] MEDS: Fish Oil/Omega-3 Fatty Acids 1 Gm Cap PO SCH (13:21)
[2020-03-22] MEDS ORDERED: Warfarin 5 MG Tab PO ONE (16:00)
[2020-03-22] MEDS: Metoprolol Succinate 50 MG Tab.ER PO SCH (20:02)
[2020-03-22] MEDS: Latanoprost 0.005% Ophth Soln 2.5 ML Bottle EYEBOTH SCH (20:04)
[2020-03-22] MEDS: Rosuvastatin 20 MG Tab PO SCH (20:04)
[2020-03-22] MEDS: Sertraline 25 MG Tab PO SCH (20:05)
[2020-03-23] MEDS: rOPINIRole 0.5 MG Tab PO PRN ×3 (01:08→21:53)
[2020-03-23] MEDS: Acetaminophen/HYDROcodone 325-5 MG Tab PO PRN ×3 (01:21→13:58)
[2020-03-23] MEDS: Calcium Carbonate 500 MG Tablet PO SCH ×2 (06:48→09:57)
[2020-03-23] MEDS: Cranberry 500 MG Cap PO SCH ×2 (06:49→09:57)
[2020-03-23] MEDS: Allopurinol 300 MG Tab PO SCH ×2 (06:49→09:58)
[2020-03-23] MEDS: Furosemide 20 MG Tab PO SCH ×2 (06:49→11:37)
[2020-03-23] MEDS: Bacitracin Oint 28.35 GM Tube TOP SCH ×2 (06:50→09:56)
[2020-03-23] MEDS: Brimonidine 0.2% Ophth Soln 5 ML Bottle EYELF SCH ×3 (06:51→20:18)
[2020-03-23] MEDS: Fish Oil/Omega-3 Fatty Acids 1 Gm Cap PO SCH (11:38)
[2020-03-23] MEDS: Warfarin 5 MG Tab PO SCH (16:24)
[2020-03-23] MEDS: Metoprolol Succinate 50 MG Tab.ER PO SCH (20:17)
[2020-03-23] MEDS: Rosuvastatin 20 MG Tab PO SCH (20:17)
[2020-03-23] MEDS: Sertraline 25 MG Tab PO SCH (20:18)
[2020-03-23] MEDS: Latanoprost 0.005% Ophth Soln 2.5 ML Bottle EYEBOTH SCH (20:18)
[2020-03-24] MEDS: rOPINIRole 0.5 MG Tab PO PRN ×3 (05:09→19:42)
[2020-03-24] MEDS: Cranberry 500 MG Cap PO SCH (08:52)
[2020-03-24] MEDS: Bacitracin Oint 28.35 GM Tube TOP SCH (08:52)
[2020-03-24] MEDS: Brimonidine 0.2% Ophth Soln 5 ML Bottle EYELF SCH ×3 (08:52→20:01)
[2020-03-24] MEDS: Calcium Carbonate 500 MG Tablet PO SCH (08:53)
[2020-03-24] MEDS: Allopurinol 300 MG Tab PO SCH (08:53)
[2020-03-24] MEDS: Acetaminophen/HYDROcodone 325-5 MG Tab PO PRN ×2 (13:01→19:41)
[2020-03-24] MEDS: Fish Oil/Omega-3 Fatty Acids 1 Gm Cap PO SCH (13:01)
[2020-03-24] MEDS ORDERED: Warfarin 2.5 MG Tab PO SCH (16:00)
[2020-03-24] MEDS: Latanoprost 0.005% Ophth Soln 2.5 ML Bottle EYEBOTH SCH ×2 (19:46→20:01)
[2020-03-24] MEDS: Rosuvastatin 20 MG Tab PO SCH (20:02)
[2020-03-24] MEDS: Metoprolol Succinate 50 MG Tab.ER PO SCH (20:02)
[2020-03-24] MEDS: Sertraline 25 MG Tab PO SCH (20:03)
[2020-03-25] MEDS: Acetaminophen/HYDROcodone 325-5 MG Tab PO PRN ×3 (01:03→19:02)
[2020-03-25] MEDS: rOPINIRole 0.5 MG Tab PO PRN ×3 (01:03→19:02)
[2020-03-25] MEDS: Bacitracin Oint 28.35 GM Tube TOP SCH (08:28)
[2020-03-25] MEDS: Brimonidine 0.2% Ophth Soln 5 ML Bottle EYELF SCH ×2 (08:28→20:20)
[2020-03-25] MEDS: Cranberry 500 MG Cap PO SCH (08:28)
[2020-03-25] MEDS: Calcium Carbonate 500 MG Tablet PO SCH (08:28)
[2020-03-25] MEDS: Furosemide 20 MG Tab PO SCH (08:28)
[2020-03-25] MEDS: Allopurinol 300 MG Tab PO SCH (08:29)
[2020-03-25] MEDS: Fish Oil/Omega-3 Fatty Acids 1 Gm Cap PO SCH (12:51)
[2020-03-25] MEDS: Warfarin 5 MG Tab PO SCH (16:03)
[2020-03-25] MEDS: Latanoprost 0.005% Ophth Soln 2.5 ML Bottle EYEBOTH SCH (20:20)
[2020-03-25] MEDS: Metoprolol Succinate 50 MG Tab.ER PO SCH (20:22)
[2020-03-25] MEDS: Sertraline 25 MG Tab PO SCH (20:23)
[2020-03-25] MEDS: Rosuvastatin 20 MG Tab PO SCH (20:24)
[2020-03-26] MEDS: Acetaminophen/HYDROcodone 325-5 MG Tab PO PRN ×2 (04:57→20:11)
[2020-03-26] MEDS: rOPINIRole 0.5 MG Tab PO PRN ×3 (04:57→20:01)
[2020-03-26] MEDS: Brimonidine 0.2% Ophth Soln 5 ML Bottle EYELF SCH ×2 (08:36→20:08)
[2020-03-26] MEDS: Bacitracin Oint 28.35 GM Tube TOP SCH (08:36)
[2020-03-26] MEDS: Allopurinol 300 MG Tab PO SCH (08:37)
[2020-03-26] MEDS: Calcium Carbonate 500 MG Tablet PO SCH (08:37)
[2020-03-26] MEDS: Cranberry 500 MG Cap PO SCH (08:37)
[2020-03-26] MEDS: Fish Oil/Omega-3 Fatty Acids 1 Gm Cap PO SCH (12:53)
[2020-03-26] MEDS ORDERED: Nitroglycerin 0.4 MG Tab.SL SL PRN (12:59)
--- NOTE | 2020-03-26 13:20 | PCM.PN ---
- General Info Date of Service: 03/26/20 Subjective Update: This is an 85-year-old female patient in swing bed for a wound care. She had an episode where she had retrosternal chest pain that radiated to her jaws bilaterally. She states she was sitting in the chair and when lying down and it went away. She has a history of atrial fib occasionally. No history of coronary artery disease. She has a history hypertension. She denies arm pain, diaphoresis. She said she felt a little nauseated when she went to lay down. Other than that she's been fine ever since. No previous symptoms. Her wound is doing good and it is covered today. - Patient Data Vitals - Most Recent: Last Vital Signs Temp 98.5 F 03/26/20 08:35 Pulse 68 03/26/20 12:00 Resp 20 03/26/20 12:00 BP 148/73 H 03/26/20 12:00 Pulse Ox 98 03/26/20 12:00 Orthostatic Blood Pressure [ 120/50 Standing] Weight - Most Recent: 148 lb 8 oz Lab Results Last 24 Hours: Laboratory Results - last 24 hr 03/26/20 03/26/20 Range/Units 06:40 12:30 PT 27.0 H (9.0-11.1) sec INR 2.67 H (1.00-1.24) Troponin I 6.9 (4.0-60.3) pg/mL Med Orders - Current: Current Medications Hydrocodone Bitart/Acetaminophen ([place] 325-5 Mg) 1 tab PO Q4H PRN PRN Reason: PAIN Last Admin: 03/26/20 04:57 Dose: 1 tab Documented by: Allopurinol (Zyloprim) 150 mg PO DAILY [facility] Last Admin: 03/26/20 08:37 Dose: 150 mg Documented by: Bacitracin (Bacitracin Oint) 1 gm TOP DAILY [facility] Last Admin: 03/26/20 08:36 Dose: 1 applic Documented by: Brimonidine Tartrate (Alphagan 0.2% Ophth Soln) 0 ml EYELF BID [facility] Last Admin: 03/26/20 08:36 Dose: 1 drop Documented by: Calcium Carbonate/Glycine (Oyster Shell Calcium) 1,000 mg PO DAILY [facility] Last Admin: 03/26/20 08:37 Dose: 1,000 mg Documented by: Cranberry (Cranberry) 500 mg PO DAILY [facility] Last Admin: 03/26/20 08:37 Dose: 500 mg Documented by: Fish Oil (Fish Oil) 1 gm PO DAILY@1200 [facility] Last Admin: 03/26/20 12:53 Dose: 1 gm Documented by: Furosemide (Lasix) 20 mg PO Q48H [facility] Last Admin: 03/25/20 08:28 Dose: 20 mg Documented by: Latanoprost (Xalatan 0.005% Ophth Soln) 0 ml EYEBOTH BEDTIME [facility] Last Admin: 03/25/20 20:20 Dose: 1 drop Documented by: Metoprolol Succinate (Toprol Xl) 50 mg PO BEDTIME [facility] Last Admin: 03/25/20 20:22 Dose: 50 mg Documented by: Nitroglycerin (Nitrostat) 0.4 mg SL Q5M PRN PRN Reason: Chest Pain Ropinirole HCl (Requip) 0.5 mg PO TID PRN PRN Reason: RESTLESS LEGS Last Admin: 03/26/20 04:57 Dose: 0.5 mg Documented by: Rosuvastatin Calcium (Crestor) 20 mg PO BEDTIME [facility] Last Admin: 03/25/20 20:24 Dose: 20 mg Documented by: Sertraline HCl (Zoloft) 25 mg PO BEDTIME [facility] Last Admin: 03/25/20 20:23 Dose: 25 mg Documented by: Warfarin Sodium (Coumadin Sliding Scale) 1 each PO ASDIRECTED [facility] Warfarin Sodium (Coumadin) 5 mg PO SuMoWeFr@1600 [facility] Last Admin: 03/25/20 16:03 Dose: 5 mg Documented by: Warfarin Sodium (Coumadin) 2.5 mg PO TuThSa@1600 [facility] Last Admin: 03/24/20 16:09 Dose: 2.5 mg Documented by: Discontinued Medications Hydrocodone Bitart/Acetaminophen ([place] 325-5 Mg) 1 tab PO Q6H PRN PRN Reason: PAIN Last Admin: 03/22/20 13:25 Dose: 1 tab Documented by: Enoxaparin Sodium (Lovenox) 60 mg SUBCUT BID [facility] Stop: 03/16/20 09:01 Last Admin: 03/15/20 08:34 Dose: 60 mg Documented by: Lisinopril/HCTZ (Lisinopril-Hctz 20-25 Mg) 1 tab PO DAILY [facility] Last Admin: 03/20/20 08:30 Dose: Not Given Documented by: Metoprolol Succinate (Toprol Xl) 100 mg PO BEDTIME [facility] Last Admin: 03/19/20 20:12 Dose: 100 mg Documented by: Metoprolol Succinate (Toprol Xl) 25 mg PO BEDTIME [facility] Stop: 04/03/20 21:01 Non-Formulary Medication (Acetic Acid [Acetic Acid 0.25%]) 25 ml IRR DAILY [facility] Last Admin: 03/15/20 14:12 Dose: Not Given Documented by: Oxycodone HCl (Oxycodone) 5 mg PO Q6H PRN PRN Reason: SEVERE PAIN Last Admin: 03/21/20 09:02 Dose: 5 mg Documented by: Ropinirole HCl (Requip) 0.5 mg PO DAILY PRN PRN Reason: RESTLESS LEGS Last Admin: 03/14/20 15:56 Dose: 0.5 mg Documented by: Ropinirole HCl (Requip) 0.5 mg PO TID PRN PRN Reason: RESTLESS LEGS Ropinirole HCl (Requip) 0.5 mg PO TID PRN PRN Reason: RESTLESS LEGS Ropinirole HCl (Requip) Confirm Administered Dose 1 mg .ROUTE .STK-MED ONE Stop: 03/22/20 08:20 Last Admin: 03/22/20 08:34 Dose: Not Given Documented by: Warfarin Sodium (Coumadin) 5 mg PO ONETIME ONE Stop: 03/15/20 16:01 Last Admin: 03/15/20 16:12 Dose: 5 mg Documented by: Warfarin Sodium (Coumadin) 2.5 mg PO ONETIME ONE Stop: 03/16/20 16:01 Last Admin: 03/16/20 16:11 Dose: 2.5 mg Documented by: Warfarin Sodium (Coumadin) 2.5 mg PO ONETIME ONE Stop: 03/17/20 16:01 Last Admin: 03/17/20 16:01 Dose: 2.5 mg Documented by: Warfarin Sodium (Coumadin) 2.5 mg PO ONETIME ONE Stop: 03/18/20 16:01 Last Admin: 03/18/20 16:43 Dose: 2.5 mg Documented by: Warfarin Sodium (Coumadin) 5 mg PO ONETIME ONE Stop: 03/19/20 16:01 Last Admin: 03/19/20 17:35 Dose: 5 mg Documented by: Warfarin Sodium (Coumadin) 5 mg PO ONETIME ONE Stop: 03/20/20 16:01 Last Admin: 03/20/20 15:48 Dose: 5 mg Documented by: Warfarin Sodium (Coumadin) 5 mg PO ONETIME ONE Stop: 03/21/20 16:01 Last Admin: 03/21/20 15:59 Dose: 5 mg Documented by: Warfarin Sodium (Coumadin) 5 mg PO ONETIME ONE Stop: 03/22/20 16:01 Last Admin: 03/22/20 18:37 Dose: 5 mg Documented by: - Exam General: Alert, Oriented, Cooperative Lungs: Clear to Auscultation, Normal Respiratory Effort. No: Rhonchi, Rub, Stridor, Wheezing Cardiovascular: Regular Rate, Regular Rhythm, No Murmurs Sepsis Event Note - Evaluation Sepsis Screening Result: No Definite Risk - Focused Exam Vital Signs: Vital Signs Temp Pulse Resp BP Pulse Ox 03/26/20 12:00 68 20 148/73 H 98 03/26/20 08:35 98.5 F 72 18 130/68 98 Date Exam was Performed: 03/26/20 Time Exam was Performed: 13:17 - Problem List & Annotations (1) Chest pain SNOMED Code(s): 04189557 Code(s): R07.9 - CHEST PAIN, UNSPECIFIED Status: Acute Current Visit: Yes (2) Squamous cell carcinoma SNOMED Code(s): 315822123 Code(s): CTP9017 - Status: Acute Current Visit: Yes (3) Weakness SNOMED Code(s): 69971344 Code(s): R53.1 - WEAKNESS Status: Acute Current Visit: Yes (4) CKD (chronic kidney disease) stage 3, GFR 30-59 ml/min SNOMED Code(s): 928391478 Code(s): N18.3 - CHRONIC KIDNEY DISEASE, STAGE 3 (MODERATE) Status: Chronic Current Visit: No Annotation/Comment:: Monitor, avoid renal toxic medication. - Problem List Review Problem List Initiated/Reviewed/Updated: Yes - My Orders Last 24 Hours: My Active Orders 03/26/20 11:56 EKG Documentation Completion [RC] ASDIRECTED EKG 12 Lead [EK] Routine 03/26/20 12:59 Nitroglycerin [Nitrostat] 0.4 mg SL Q5M PRN - Plan Plan:: 1. EKG showed no acute changes. Troponins within normal limits. Discussed with the patient. We will observe her for now. nitroglycerin sub-every 0.4 mg every 5 minutes when necessary for chest pain. If it gets worse consider cardiology referral. If he gets better she can follow-up with her primary provider and get a stress test.
[2020-03-26] MEDS ORDERED: Warfarin 2.5 MG Tab PO SCH (16:00)
[2020-03-26] MEDS: Metoprolol Succinate 50 MG Tab.ER PO SCH (20:08)
[2020-03-26] MEDS: Rosuvastatin 20 MG Tab PO SCH (20:08)
[2020-03-26] MEDS: Latanoprost 0.005% Ophth Soln 2.5 ML Bottle EYEBOTH SCH (20:09)
[2020-03-26] MEDS: Sertraline 25 MG Tab PO SCH (20:09)
[2020-03-27] MEDS: rOPINIRole 0.5 MG Tab PO PRN (05:18)
--- NOTE | 2020-03-27 07:57 | PCM.PN ---
- General Info Date of Service: 03/27/20 Admission Dx/Problem (Free Text): Patient without complaints. She had no other episodes of chest pain. She is using to hydrocodone today. She denies fevers, chills. - Patient Data Vitals - Most Recent: Last Vital Signs Temp 98.5 F 03/26/20 08:35 Pulse 80 03/26/20 20:08 Resp 20 03/26/20 12:00 BP 116/64 03/26/20 20:08 Pulse Ox 98 03/26/20 12:00 Orthostatic Blood Pressure [ 120/50 Standing] Weight - Most Recent: 148 lb 8 oz Lab Results Last 24 Hours: Laboratory Results - last 24 hr 03/26/20 Range/Units 12:30 Troponin I 6.9 (4.0-60.3) pg/mL Med Orders - Current: Current Medications Hydrocodone Bitart/Acetaminophen ([place] 325-5 Mg) 1 tab PO Q4H PRN PRN Reason: PAIN Last Admin: 03/26/20 20:11 Dose: 1 tab Documented by: Allopurinol (Zyloprim) 150 mg PO DAILY [facility] Last Admin: 03/26/20 08:37 Dose: 150 mg Documented by: Bacitracin (Bacitracin Oint) 1 gm TOP DAILY [facility] Last Admin: 03/26/20 08:36 Dose: 1 applic Documented by: Brimonidine Tartrate (Alphagan 0.2% Ophth Soln) 0 ml EYELF BID [facility] Last Admin: 03/26/20 20:08 Dose: 1 drop Documented by: Calcium Carbonate/Glycine (Oyster Shell Calcium) 1,000 mg PO DAILY [facility] Last Admin: 03/26/20 08:37 Dose: 1,000 mg Documented by: Cranberry (Cranberry) 500 mg PO DAILY [facility] Last Admin: 03/26/20 08:37 Dose: 500 mg Documented by: Fish Oil (Fish Oil) 1 gm PO DAILY@1200 [facility] Last Admin: 03/26/20 12:53 Dose: 1 gm Documented by: Furosemide (Lasix) 20 mg PO Q48H [facility] Last Admin: 03/25/20 08:28 Dose: 20 mg Documented by: Latanoprost (Xalatan 0.005% Ophth Soln) 0 ml EYEBOTH BEDTIME [facility] Last Admin: 03/26/20 20:09 Dose: 1 drop Documented by: Metoprolol Succinate (Toprol Xl) 50 mg PO BEDTIME [facility] Last Admin: 03/26/20 20:08 Dose: 50 mg Documented by: Nitroglycerin (Nitrostat) 0.4 mg SL Q5M PRN PRN Reason: Chest Pain Ropinirole HCl (Requip) 0.5 mg PO TID PRN PRN Reason: RESTLESS LEGS Last Admin: 03/27/20 05:18 Dose: 0.5 mg Documented by: Rosuvastatin Calcium (Crestor) 20 mg PO BEDTIME [facility] Last Admin: 03/26/20 20:08 Dose: 20 mg Documented by: Sertraline HCl (Zoloft) 25 mg PO BEDTIME [facility] Last Admin: 03/26/20 20:09 Dose: 25 mg Documented by: Warfarin Sodium (Coumadin Sliding Scale) 1 each PO ASDIRECTED [facility] Warfarin Sodium (Coumadin) 5 mg PO TuThSa@1600 [facility] Warfarin Sodium (Coumadin) 2.5 mg PO SuMoWeFr@1600 [facility] Last Admin: 03/26/20 16:27 Dose: 2.5 mg Documented by: Discontinued Medications Hydrocodone Bitart/Acetaminophen ([place] 325-5 Mg) 1 tab PO Q6H PRN PRN Reason: PAIN Last Admin: 03/22/20 13:25 Dose: 1 tab Documented by: Enoxaparin Sodium (Lovenox) 60 mg SUBCUT BID [facility] Stop: 03/16/20 09:01 Last Admin: 03/15/20 08:34 Dose: 60 mg Documented by: Lisinopril/HCTZ (Lisinopril-Hctz 20-25 Mg) 1 tab PO DAILY [facility] Last Admin: 03/20/20 08:30 Dose: Not Given Documented by: Metoprolol Succinate (Toprol Xl) 100 mg PO BEDTIME [facility] Last Admin: 03/19/20 20:12 Dose: 100 mg Documented by: Metoprolol Succinate (Toprol Xl) 25 mg PO BEDTIME [facility] Stop: 04/03/20 21:01 Non-Formulary Medication (Acetic Acid [Acetic Acid 0.25%]) 25 ml IRR DAILY [facility] Last Admin: 03/15/20 14:12 Dose: Not Given Documented by: Oxycodone HCl (Oxycodone) 5 mg PO Q6H PRN PRN Reason: SEVERE PAIN Last Admin: 03/21/20 09:02 Dose: 5 mg Documented by: Ropinirole HCl (Requip) 0.5 mg PO DAILY PRN PRN Reason: RESTLESS LEGS Last Admin: 03/14/20 15:56 Dose: 0.5 mg Documented by: Ropinirole HCl (Requip) 0.5 mg PO TID PRN PRN Reason: RESTLESS LEGS Ropinirole HCl (Requip) 0.5 mg PO TID PRN PRN Reason: RESTLESS LEGS Ropinirole HCl (Requip) Confirm Administered Dose 1 mg .ROUTE .STK-MED ONE Stop: 03/22/20 08:20 Last Admin: 03/22/20 08:34 Dose: Not Given Documented by: Warfarin Sodium (Coumadin) 5 mg PO ONETIME ONE Stop: 03/15/20 16:01 Last Admin: 03/15/20 16:12 Dose: 5 mg Documented by: Warfarin Sodium (Coumadin) 2.5 mg PO ONETIME ONE Stop: 03/16/20 16:01 Last Admin: 03/16/20 16:11 Dose: 2.5 mg Documented by: Warfarin Sodium (Coumadin) 2.5 mg PO ONETIME ONE Stop: 03/17/20 16:01 Last Admin: 03/17/20 16:01 Dose: 2.5 mg Documented by: Warfarin Sodium (Coumadin) 2.5 mg PO ONETIME ONE Stop: 03/18/20 16:01 Last Admin: 03/18/20 16:43 Dose: 2.5 mg Documented by: Warfarin Sodium (Coumadin) 5 mg PO ONETIME ONE Stop: 03/19/20 16:01 Last Admin: 03/19/20 17:35 Dose: 5 mg Documented by: Warfarin Sodium (Coumadin) 5 mg PO ONETIME ONE Stop: 03/20/20 16:01 Last Admin: 03/20/20 15:48 Dose: 5 mg Documented by: Warfarin Sodium (Coumadin) 5 mg PO ONETIME ONE Stop: 03/21/20 16:01 Last Admin: 03/21/20 15:59 Dose: 5 mg Documented by: Warfarin Sodium (Coumadin) 5 mg PO ONETIME ONE Stop: 03/22/20 16:01 Last Admin: 03/22/20 18:37 Dose: 5 mg Documented by: Warfarin Sodium (Coumadin) 5 mg PO SuMoWeFr@1600 [facility] Last Admin: 03/25/20 16:03 Dose: 5 mg Documented by: Warfarin Sodium (Coumadin) 2.5 mg PO TuThSa@1600 [facility] Last Admin: 03/24/20 16:09 Dose: 2.5 mg Documented by: - Exam General: Alert, Oriented, Cooperative Lungs: Normal Respiratory Effort Skin: Other (Skin graft up on her left upper thigh is healing nicely. She has a ulcer on her left foot both dorsal and medial that are healing nicely with no signs of infection.) Sepsis Event Note - Evaluation Sepsis Screening Result: No Definite Risk - Focused Exam Vital Signs: Vital Signs Pulse BP 03/26/20 20:08 80 116/64 Date Exam was Performed: 03/27/20 Time Exam was Performed: 07:56 - Problem List & Annotations (1) Chest pain SNOMED Code(s): 46749893 Code(s): R07.9 - CHEST PAIN, UNSPECIFIED Status: Acute Current Visit: Yes (2) Squamous cell carcinoma SNOMED Code(s): 650810081 Code(s): GPT3854 - Status: Acute Current Visit: Yes (3) Weakness SNOMED Code(s): 91775590 Code(s): R53.1 - WEAKNESS Status: Acute Current Visit: Yes (4) CKD (chronic kidney disease) stage 3, GFR 30-59 ml/min SNOMED Code(s): 956856615 Code(s): N18.3 - CHRONIC KIDNEY DISEASE, STAGE 3 (MODERATE) Status: Chronic Current Visit: No Annotation/Comment:: Monitor, avoid renal toxic medication. - Problem List Review Problem List Initiated/Reviewed/Updated: Yes - My Orders Last 24 Hours: My Active Orders 03/26/20 11:56 EKG Documentation Completion [RC] ASDIRECTED EKG 12 Lead [EK] Routine 03/26/20 12:59 Nitroglycerin [Nitrostat] 0.4 mg SL Q5M PRN 03/26/20 16:00 Warfarin [Coumadin] 2.5 mg PO SuMoWeFr@1600 03/27/20 16:00 Warfarin [Coumadin] 5 mg PO TuThSa@1600 - Plan Plan:: 1. Discharge to home on home health/PT/OT.
--- NOTE | 2020-03-27 08:17 | PCM.DCSUM1 ---
Discharge Summary - Hospital Course Free Text/Narrative:: Swing bed course-patient was admitted for swing bed and a wound VAC. She was able to get off that. She has skin grafting had wound care. She was to touching with a Cam Walker on the left leg swelling PT/OT which she did really well at. Should 1 episodes where she has some retrosternal chest pressure with radiation to the jaw. Lasted 2 minutes and went away. She had EKG and troponin are negative. She had no reoccurrence. We'll discharge her home on home health, PT/OT for wound care changes. She has a plastic surgery appointment next week and she'll follow-up with her primary in a week. Discussed her chest pain with or she wants nitroglycerin and she does not. Brief History: 85 yo admitted from [facility] for wound management and rehab.She had a wound debridement and Wound Vac placement on an nonhealing ulcer of left lower extremity. The original wound was probably from a cat bite. 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 Her past history includes HTN,CHF,afib and CKD,all stable. Diagnosis: Stroke: No - Discharge Data Discharge Date: 03/27/20 Discharge Disposition: Home, W Home Health Agency 06 Condition: Good - Referral to Home Health Date of Face to Face Encounter: 03/27/20 Reason for Homebound Status: Cellulitis left leg, wound, skin grafting, limited weightbearing. Daily wound care. Primary Care Physician: Hillary Lopez NP Skilled Need: Nursing for wound care and dressing changes, PT, OT for ambulation, ADLs and strengthening. - Discharge Diagnosis/Problem(s) (1) Chest pain SNOMED Code(s): 19914703 ICD Code: R07.9 - CHEST PAIN, UNSPECIFIED Status: Acute Current Visit: Yes (2) Squamous cell carcinoma SNOMED Code(s): 390561775 ICD Code: [id number] - Status: Acute Current Visit: Yes (3) Weakness SNOMED Code(s): 96829327 ICD Code: R53.1 - WEAKNESS Status: Acute Current Visit: Yes (4) CKD (chronic kidney disease) stage 3, GFR 30-59 ml/min SNOMED Code(s): 226101109 ICD Code: N18.3 - CHRONIC KIDNEY DISEASE, STAGE 3 (MODERATE) Status: Chronic Current Visit: No Problem Details: Monitor, avoid renal toxic medication. - Patient Summary/Data Consults: Consultations 03/14/20 15:35 OT Evaluation and Treatment [CONS] Routine Please Evaluate and Treat. OT Reason for Consult: ADL's This query below is only for informational purposes and is not editable. PT Evaluation and Treatment [CONS] Routine Please Evaluate and Treat. PT Reason for Consult: Ambulation This query below is only for informational purposes and is not editable. - Patient Instructions Diet: Regular Diet as Tolerated Activity: As Tolerated Driving: Do Not Drive Showering/Bathing: May Shower Other/Special Instructions: 1. Recheck with Hillary Lopez in 1 week. 2. rechecc with Plastic surgery next week. The appt is already made. 3. Home health, PT,OT. - Discharge Plan Prescriptions/Med Rec: Bacitracin [Bacitracin Oint] 1 gm TOP DAILY #1 tube Warfarin [Coumadin] 2.5 mg PO SuMoWeFr@1600 #30 tablet Warfarin [Coumadin] 5 mg PO TuThSa@1600 #30 tablet Acetaminophen/HYDROcodone [[place] 325-5 MG] 1 tab PO Q4H PRN #60 tablet PRN Reason: PAIN rOPINIRole [Requip] 0.5 mg PO TID PRN 5 Days #30 tablet PRN Reason: RESTLESS LEGS Metoprolol Succinate [Toprol XL 50mg] 50 mg PO BEDTIME #90 tab.er Home Medications: Home Meds Furosemide 20 mg PO Q48H 09/11/18 [History] Sertraline [Zoloft] 25 mg PO BEDTIME 09/11/18 [History] allopurinoL [Zyloprim] 150 mg PO DAILY 09/11/18 [History] Brimonidine [Alphagan P 0.15% Ophth Soln] 1 drop EYELF BID 03/14/20 [History] Calcium Carbonate/Vitamin D3 [Calcium 1,000 + D3 Caplet] 1 tab PO DAILY 03/14/20 [History] Cranberry Extract/Vit C [Azo Cranberry Softgel] 2 cap PO DAILY 03/14/20 [History] Latanoprost [Xalatan 0.005% Ophth Soln] 1 drop EYEBOTH BEDTIME 03/14/20 [History] [place]-3/DHA/Epa/Fish Oil [[place]-3 Fish Oil 1,000 MG Sfgl] 1,000 mg PO DAILY@1200 03/14/20 [History] Rosuvastatin [Crestor] 20 mg PO BEDTIME 03/14/20 [History] Acetaminophen/HYDROcodone [[place] 325-5 MG] 1 tab PO Q4H PRN #60 tablet 03/27/20 [Rx] Bacitracin [Bacitracin Oint] 1 gm TOP DAILY #1 tube 03/27/20 [Rx] Metoprolol Succinate [Toprol XL 50mg] 50 mg PO BEDTIME #90 tab.er 03/27/20 [Rx] Warfarin [Coumadin] 2.5 mg PO SuMoWeFr@1600 #30 tablet 03/27/20 [Rx] Warfarin [Coumadin] 5 mg PO TuThSa@1600 #30 tablet 03/27/20 [Rx] rOPINIRole [Requip] 0.5 mg PO TID PRN 5 Days #30 tablet 03/27/20 [Rx] Patient Handouts: Wound Infection, [id number], Fall Prevention in Hospitals, Adult, Venous Thromboembolism Prevention - Discharge Summary/Plan Comment DC Time >30 min.: No - Patient Data Vitals - Most Recent: Last Vital Signs Temp 98.5 F 03/26/20 08:35 Pulse 80 03/26/20 20:08 Resp 20 03/26/20 12:00 BP 116/64 03/26/20 20:08 Pulse Ox 98 03/26/20 12:00 Orthostatic Blood Pressure [ 120/50 Standing] Weight - Most Recent: 148 lb 8 oz Lab Results - Last 24 hrs: Laboratory Results - last 24 hr 03/26/20 Range/Units 12:30 Troponin I 6.9 (4.0-60.3) pg/mL Med Orders - Current: Current Medications Hydrocodone Bitart/Acetaminophen ([place] 325-5 Mg) 1 tab PO Q4H PRN PRN Reason: PAIN Last Admin: 03/26/20 20:11 Dose: 1 tab Documented by: Allopurinol (Zyloprim) 150 mg PO DAILY [facility] Last Admin: 03/26/20 08:37 Dose: 150 mg Documented by: Bacitracin (Bacitracin Oint) 1 gm TOP DAILY [facility] Last Admin: 03/26/20 08:36 Dose: 1 applic Documented by: Brimonidine Tartrate (Alphagan 0.2% Ophth Soln) 0 ml EYELF BID [facility] Last Admin: 03/26/20 20:08 Dose: 1 drop Documented by: Calcium Carbonate/Glycine ([place] Calcium) 1,000 mg PO DAILY [facility] Last Admin: 03/26/20 08:37 Dose: 1,000 mg Documented by: Cranberry (Cranberry) 500 mg PO DAILY [facility] Last Admin: 03/26/20 08:37 Dose: 500 mg Documented by: Fish Oil (Fish Oil) 1 gm PO DAILY@1200 [facility] Last Admin: 03/26/20 12:53 Dose: 1 gm Documented by: Furosemide (Lasix) 20 mg PO Q48H [facility] Last Admin: 03/25/20 08:28 Dose: 20 mg Documented by: Latanoprost (Xalatan 0.005% Ophth Soln) 0 ml EYEBOTH BEDTIME [facility] Last Admin: 03/26/20 20:09 Dose: 1 drop Documented by: Metoprolol Succinate (Toprol Xl) 50 mg PO BEDTIME [facility] Last Admin: 03/26/20 20:08 Dose: 50 mg Documented by: Nitroglycerin (Nitrostat) 0.4 mg SL Q5M PRN PRN Reason: Chest Pain Ropinirole HCl (Requip) 0.5 mg PO TID PRN PRN Reason: RESTLESS LEGS Last Admin: 03/27/20 05:18 Dose: 0.5 mg Documented by: Rosuvastatin Calcium (Crestor) 20 mg PO BEDTIME [facility] Last Admin: 03/26/20 20:08 Dose: 20 mg Documented by: Sertraline HCl (Zoloft) 25 mg PO BEDTIME [facility] Last Admin: 03/26/20 20:09 Dose: 25 mg Documented by: Warfarin Sodium (Coumadin Sliding Scale) 1 each PO ASDIRECTED [facility] Warfarin Sodium (Coumadin) 5 mg PO TuThSa@1600 [facility] Warfarin Sodium (Coumadin) 2.5 mg PO SuMoWeFr@1600 [facility] Last Admin: 03/26/20 16:27 Dose: 2.5 mg Documented by: Discontinued Medications Hydrocodone Bitart/Acetaminophen ([place] 325-5 Mg) 1 tab PO Q6H PRN PRN Reason: PAIN Last Admin: 03/22/20 13:25 Dose: 1 tab Documented by: Enoxaparin Sodium (Lovenox) 60 mg SUBCUT BID [facility] Stop: 03/16/20 09:01 Last Admin: 03/15/20 08:34 Dose: 60 mg Documented by: Lisinopril/HCTZ (Lisinopril-Hctz 20-25 Mg) 1 tab PO DAILY [facility] Last Admin: 03/20/20 08:30 Dose: Not Given Documented by: Metoprolol Succinate (Toprol Xl) 100 mg PO BEDTIME [facility] Last Admin: 03/19/20 20:12 Dose: 100 mg Documented by: Metoprolol Succinate (Toprol Xl) 25 mg PO BEDTIME [facility] Stop: 04/03/20 21:01 Non-Formulary Medication (Acetic Acid [Acetic Acid 0.25%]) 25 ml IRR DAILY [facility] Last Admin: 03/15/20 14:12 Dose: Not Given Documented by: Oxycodone HCl (Oxycodone) 5 mg PO Q6H PRN PRN Reason: SEVERE PAIN Last Admin: 03/21/20 09:02 Dose: 5 mg Documented by: Ropinirole HCl (Requip) 0.5 mg PO DAILY PRN PRN Reason: RESTLESS LEGS Last Admin: 03/14/20 15:56 Dose: 0.5 mg Documented by: Ropinirole HCl (Requip) 0.5 mg PO TID PRN PRN Reason: RESTLESS LEGS Ropinirole HCl (Requip) 0.5 mg PO TID PRN PRN Reason: RESTLESS LEGS Ropinirole HCl (Requip) Confirm Administered Dose 1 mg .ROUTE .STK-MED ONE Stop: 03/22/20 08:20 Last Admin: 03/22/20 08:34 Dose: Not Given Documented by: Warfarin Sodium (Coumadin) 5 mg PO ONETIME ONE Stop: 03/15/20 16:01 Last Admin: 03/15/20 16:12 Dose: 5 mg Documented by: Warfarin Sodium (Coumadin) 2.5 mg PO ONETIME ONE Stop: 03/16/20 16:01 Last Admin: 03/16/20 16:11 Dose: 2.5 mg Documented by: Warfarin Sodium (Coumadin) 2.5 mg PO ONETIME ONE Stop: 03/17/20 16:01 Last Admin: 03/17/20 16:01 Dose: 2.5 mg Documented by: Warfarin Sodium (Coumadin) 2.5 mg PO ONETIME ONE Stop: 03/18/20 16:01 Last Admin: 03/18/20 16:43 Dose: 2.5 mg Documented by: Warfarin Sodium (Coumadin) 5 mg PO ONETIME ONE Stop: 03/19/20 16:01 Last Admin: 03/19/20 17:35 Dose: 5 mg Documented by: Warfarin Sodium (Coumadin) 5 mg PO ONETIME ONE Stop: 03/20/20 16:01 Last Admin: 03/20/20 15:48 Dose: 5 mg Documented by: Warfarin Sodium (Coumadin) 5 mg PO ONETIME ONE Stop: 03/21/20 16:01 Last Admin: 03/21/20 15:59 Dose: 5 mg Documented by: Warfarin Sodium (Coumadin) 5 mg PO ONETIME ONE Stop: 03/22/20 16:01 Last Admin: 03/22/20 18:37 Dose: 5 mg Documented by: Warfarin Sodium (Coumadin) 5 mg PO SuMoWeFr@1600 [facility] Last Admin: 03/25/20 16:03 Dose: 5 mg Documented by: Warfarin Sodium (Coumadin) 2.5 mg PO TuThSa@1600 [facility] Last Admin: 03/24/20 16:09 Dose: 2.5 mg Documented by:
[2020-03-27] MEDS: Brimonidine 0.2% Ophth Soln 5 ML Bottle EYELF SCH (10:31)
[2020-03-27] MEDS: Furosemide 20 MG Tab PO SCH (10:32)
[2020-03-27] MEDS: Calcium Carbonate 500 MG Tablet PO SCH (10:32)
[2020-03-27] MEDS: Allopurinol 300 MG Tab PO SCH (10:32)
[2020-03-27] MEDS: Cranberry 500 MG Cap PO SCH (10:32)
[2020-03-27] MEDS: Bacitracin Oint 28.35 GM Tube TOP SCH (10:33)
[2020-03-27] MEDS ORDERED: Warfarin 5 MG Tab PO SCH (16:00)
[2020-03-27] MEDS ORDERED: Metoprolol Succinate 25 MG Tab.ER PO SCH (21:00)
== END 2020-03-27 11:10 | disposition home health service (06) | DRG 948 ==
LOC: FB.MS 03-14 13:38
PROVIDERS: ADMIT Family Medicine; ATTEND Family Medicine
DX: R53.1 Weakness (principal); I13.0 Hypertensive heart and chronic kidney disease with heart failure and stage 1 through stage 4 chronic kidney disease, or unspecified chronic kidney disease; E44.0 Moderate protein-calorie malnutrition; N18.3 Chronic kidney disease, stage 3 (moderate); Z48.01 Encounter for change or removal of surgical wound dressing; R07.9 Chest pain, unspecified; I50.9 Heart failure, unspecified; I48.91 Unspecified atrial fibrillation; M19.90 Unspecified osteoarthritis, unspecified site; M10.9 Gout, unspecified; M54.2 Cervicalgia; G89.29 Other chronic pain; Z96.649 Presence of unspecified artificial hip joint; Z79.01 Long term (current) use of anticoagulants; Z79.899 Other long term (current) drug therapy; Z98.49 Cataract extraction status, unspecified eye; Z90.49 Acquired absence of other specified parts of digestive tract; Z87.891 Personal history of nicotine dependence; Z94.5 Skin transplant status; Z68.25 Body mass index [BMI] 25.0-25.9, adult
CPT/HCPCS: 36415; 84484; 85610; 93005; 97110-GP; 97116-GP; 97161-GP; 97165-GO; 97530-GO; 97535-GO; 97542-GO; A9270-GY; J1650

== ENCOUNTER 2023-01-08 10:36 | Emergency (ER) | payer MEDICARE, OTHER ==
[2023-01-08 11:13] LABS: BASOPHILS PERCENT AUTO 0.5 % (0.2-1.5); EOSINOPHILS PERCENT AUTO 0.4 % (0.6-8.1); HEMATOCRIT 28.7 % (34.2-48.2); HEMOGLOBIN 9.3 g/dL (11.4-15.5); LYMPHOCYTES ABSOLUTE AUTO 0.9 x10-3/uL (1.0-4.4); LYMPHOCYTES PERCENT AUTO 13.6 % (18.4-52.1); MEAN CORPUSCULAR HEMOGLOBIN 29.1 pg (23.9-33.9); MEAN CORPUSCULAR HGB CONC 32.4 g/dL (31.9-34.8); MEAN CORPUSCULAR VOLUME 89.8 fL (76.7-100.5); MEAN PLATELET VOLUME 9.1 fL (7.1-12.4); MONOCYTES ABSOLUTE AUTO 0.8 x10-3/uL (0.3-1.0); MONOCYTES PERCENT AUTO 13.1 % (4.4-15.7); NEUTROPHILS ABSOLUTE AUTO 4.7 x10-3/uL (1.5-6.3); NEUTROPHILS PERCENT AUTO 72.4 % (30.8-76.2); PLATELET COUNT,PLT 188 x10(3)uL (151-488); RED BLOOD CELL COUNT 3.19 x10(6)uL (3.60-5.20); RED CELL DISTRIBUTION WIDTH 17.2 % (12.3-16.5); WHITE BLOOD CELL COUNT,WBC 6.5 x10-3/uL (3.0-10.3)
[2023-01-08 11:15] LABS: BLOOD UREA NITROGEN,BUN 22 mg/dL (7-18); BUN/CREATININE RATIO 18.3 (9-20); CALCIUM 9.8 mg/dL (8.6-10.2); CARBON DIOXIDE,CO2 28 mmol/L (21-32); CHLORIDE,CL 101 mmol/L (100-110); CREATININE 1.2 mg/dL (0.55-1.02); EST CRCL DRUG DOSING (CG) 27.98 mL/min; ESTIMATED GFR 44 mL/min (>60); GLUCOSE RANDOM 102 mg/dL (80-116); POTASSIUM,K 3.8 mmol/L (3.5-5.3); SODIUM,NA 137 mmol/L (135-145)
[2023-01-08 11:17] LABS: INR 3.09 (1.00-1.24); PROTHROMBIN TIME 30.8 sec (9.0-11.1)
[2023-01-08 11:20] LABS: A/G RATIO 0.9; ALANINE AMINOTRANSFERASE,ALT 28 U/L (12-36); ALKALINE PHOSPHATASE 69 IU/L (56-112); ASPARTATE AMNIOTRANSFERASE,AST 29 IU/L (5-25); BILIRUBIN TOTAL 0.7 mg/dL (0.1-1.3); PROTEIN TOTAL,TP 6.3 g/dL (6.0-8.0)
[2023-01-08 11:27] LABS: TROPONIN I 13.6 pg/mL (4.0-60.3)
[2023-01-08] MEDS ORDERED: Furosemide 40 MG/4 ML VIAL IVPUSH ONE (11:35)
[2023-01-08] MEDS ORDERED: Metolazone 2.5 MG Tab PO ONE (11:35)
== END 2023-01-08 13:15 | disposition home or self-care (01) ==
LOC: FB.ED 10:36
DX: I48.91 Unspecified atrial fibrillation (principal); I13.0 Hypertensive heart and chronic kidney disease with heart failure and stage 1 through stage 4 chronic kidney disease, or unspecified chronic kidney disease; N18.9 Chronic kidney disease, unspecified; I50.9 Heart failure, unspecified; Z79.01 Long term (current) use of anticoagulants; Z79.899 Other long term (current) drug therapy
CPT/HCPCS: 36415; 71045; 80053; 83880; 84484; 85025; 85610; 93005; 96374; 99285-25; A9270-GY; J1940

== ENCOUNTER 2023-11-04 14:36 | Inpatient (IN) | payer MEDICARE, OTHER ==
[2023-11-04] MEDS ORDERED: Acetaminophen 325 MG Tab PO PRN (14:58)
[2023-11-04] MEDS ORDERED: Polyethylene Glycol 3350 Powder 17 GM Packet PO PRN (14:58)
[2023-11-04] MEDS ORDERED: Ondansetron 4 MG Tab.DIS PO PRN (14:58)
[2023-11-04] MEDS ORDERED: Mupirocin Oint 22 GM Tube TOP PRN (15:41)
[2023-11-04] MEDS: Benzonatate 100 MG Cap PO PRN (16:28)
[2023-11-04] MEDS: Brimonidine 0.2% Ophth Soln 5 ML Bottle EYELF SCH (20:41)
[2023-11-04] MEDS: Metoprolol Succinate 25 MG Tab.ER PO SCH (20:42)
[2023-11-04] MEDS: Latanoprost 0.005% Ophth Soln 2.5 ML Bottle EYEBOTH SCH (20:42)
[2023-11-04] MEDS: rOPINIRole 1 MG Tab PO SCH (20:42)
[2023-11-05 06:40] LABS: INR 2.2 (1.00-1.24); PROTHROMBIN TIME 21.4 sec (9.0-11.1)
[2023-11-05] MEDS: Potassium Phosphate,Mb-Db/Sodium Phosphate,Mb-Db Packet PO SCH (08:35)
[2023-11-05] MEDS: Bumetanide 1 MG Tab PO SCH (08:42)
[2023-11-05] MEDS: Cholecalciferol (Vitamin D3) 25 MCG Tab PO SCH (08:42)
[2023-11-05] MEDS: Calcium Carbonate 500 MG Tablet PO SCH (08:42)
[2023-11-05] MEDS: Sertraline 50 MG Tab PO SCH (08:43)
[2023-11-05] MEDS: Allopurinol 300 MG Tab PO SCH (08:43)
[2023-11-05] MEDS ORDERED: CRANBERRY EXTRACT PO SCH (09:00)
[2023-11-05] MEDS ORDERED: VIT C CA PO SCH (09:00)
[2023-11-05] MEDS ORDERED: [UNRECOGNIZED DRUG - OTHER] PO SCH (09:00)
[2023-11-05] MEDS ORDERED: Warfarin Sliding Scale PO SCH (09:00)
[2023-11-05] MEDS: Fish Oil/Omega-3 Fatty Acids 1 Gm Cap PO SCH (12:18)
[2023-11-05] MEDS: rOPINIRole 1 MG Tab PO SCH (12:18)
[2023-11-05] MEDS: Warfarin 5 MG Tab PO ONE (16:24)
[2023-11-05] MEDS: Codeine/guaiFENesin 10-100 MG/5 ML Syrup 5 ML Cup PO PRN (23:36)
[2023-11-06 07:03] LABS: INR 2.11 (1.00-1.24); PROTHROMBIN TIME 20.6 sec (9.0-11.1)
[2023-11-06] MEDS: Ferrous Sulfate 325 MG Tab PO SCH (08:00)
[2023-11-06] MEDS: Warfarin 2.5 MG Tab PO ONE (16:57)
[2023-11-07 06:40] LABS: BASOPHILS PERCENT AUTO 0.4 % (0.2-1.5); EOSINOPHILS PERCENT AUTO 0.6 % (0.6-8.1); HEMATOCRIT 34.3 % (34.2-48.2); HEMOGLOBIN 11.4 g/dL (11.4-15.5); LYMPHOCYTES PERCENT AUTO 15.9 % (18.4-52.1); MEAN CORPUSCULAR HEMOGLOBIN 31.8 pg (23.9-33.9); MEAN CORPUSCULAR HGB CONC 33.1 g/dL (31.9-34.8); MEAN PLATELET VOLUME 9.7 fL (7.1-12.4); MONOCYTES ABSOLUTE AUTO 0.6 x10-3/uL (0.3-1.0); MONOCYTES PERCENT AUTO 10.4 % (4.4-15.7); NEUTROPHILS ABSOLUTE AUTO 4.5 x10-3/uL (1.5-6.3); NEUTROPHILS PERCENT AUTO 72.7 % (30.8-76.2); PLATELET COUNT,PLT 120 x10(3)uL (151-488); RED CELL DISTRIBUTION WIDTH 17.2 % (12.3-16.5); WHITE BLOOD CELL COUNT,WBC 6.2 x10-3/uL (3.0-10.3)
[2023-11-07 06:44] LABS: INR 2.16 (1.00-1.24); PROTHROMBIN TIME 21.1 sec (9.0-11.1)
[2023-11-07 06:47] LABS: A/G RATIO 0.7; ALANINE AMINOTRANSFERASE,ALT 41 U/L (12-36); ALBUMIN 2.6 g/dL (2.9-4.5); ALKALINE PHOSPHATASE 78 IU/L (56-112); ASPARTATE AMNIOTRANSFERASE,AST 45 IU/L (5-25); BILIRUBIN TOTAL 0.8 mg/dL (0.1-1.3); BLOOD UREA NITROGEN,BUN 48 mg/dL (7-18); BUN/CREATININE RATIO 36.9 (9-20); CALCIUM 9.1 mg/dL (8.6-10.2); CARBON DIOXIDE,CO2 33 mmol/L (21-32); CHLORIDE,CL 96 mmol/L (100-110); CREATININE 1.3 mg/dL (0.55-1.02); ESTIMATED GFR 39 mL/min (>60); GLUCOSE RANDOM 143 mg/dL (80-116); POTASSIUM,K 3.8 mmol/L (3.5-5.3); PROTEIN TOTAL,TP 6.2 g/dL (6.0-8.0); SODIUM,NA 135 mmol/L (135-145)
[2023-11-07 07:13] LABS: RED BLOOD CELL COUNT 3.58 x10(6)uL (3.60-5.20)
[2023-11-07] MEDS: Warfarin 2.5 MG Tab PO ONE (16:40)
[2023-11-08 07:04] LABS: INR 2.08 (1.00-1.24); PROTHROMBIN TIME 20.4 sec (9.0-11.1)
[2023-11-08] MEDS: Warfarin 2.5 MG Tab PO ONE (16:12)
[2023-11-09 06:36] LABS: INR 2.12 (1.00-1.24); PROTHROMBIN TIME 20.7 sec (9.0-11.1)
[2023-11-09] MEDS: Warfarin 5 MG Tab PO SCH (15:00)
[2023-11-10] MEDS: Warfarin 2.5 MG Tab PO SCH (17:27)
[2023-11-11 06:37] LABS: INR 2.25 (1.00-1.24); PROTHROMBIN TIME 21.8 sec (9.0-11.1)
== END 2023-11-12 11:13 | disposition home health service (06) | DRG 947 ==
LOC: FB.MS 14:36
PROVIDERS: ADMIT Family Medicine; ATTEND Family Medicine
DX: R53.81 Other malaise (principal); I50.43 Acute on chronic combined systolic (congestive) and diastolic (congestive) heart failure; I48.19 Other persistent atrial fibrillation; I13.0 Hypertensive heart and chronic kidney disease with heart failure and stage 1 through stage 4 chronic kidney disease, or unspecified chronic kidney disease; E44.0 Moderate protein-calorie malnutrition; Z66 Do not resuscitate; N18.32 Chronic kidney disease, stage 3b; G25.81 Restless legs syndrome; F41.9 Anxiety disorder, unspecified; F32.A Depression, unspecified; E78.5 Hyperlipidemia, unspecified; I34.0 Nonrheumatic mitral (valve) insufficiency; M19.90 Unspecified osteoarthritis, unspecified site; M10.9 Gout, unspecified; M54.2 Cervicalgia; G89.29 Other chronic pain; Z96.659 Presence of unspecified artificial knee joint; B33.8 Other specified viral diseases; R53.1 Weakness; Z79.01 Long term (current) use of anticoagulants; Z79.899 Other long term (current) drug therapy; Z87.440 Personal history of urinary (tract) infections; Z98.49 Cataract extraction status, unspecified eye; Z90.49 Acquired absence of other specified parts of digestive tract; Z90.710 Acquired absence of both cervix and uterus; S81.802D Unspecified open wound, left lower leg, subsequent encounter; Z68.22 Body mass index [BMI] 22.0-22.9, adult
CPT/HCPCS: 36415; 80053; 83880; 85025; 85610; 97112-GP; 97116-GP; 97161-GP; 97165-GO; 97530-GP; 97535-GO; A9270-GY